=== PATIENT | female | born 1965 | race Two or more races ===

== ENCOUNTER 2020-08-31 17:51 | Outpatient (REF) | payer MEDICAID, SELFPAY | END 2020-08-31 17:52 | disposition home or self-care (01) | LOC: HO.LAB 17:51 | PROVIDERS: Visit Provider Internal Medicine | DX: Z20.828 Contact with and (suspected) exposure to other viral communicable diseases (principal) | CPT/HCPCS: C9803; U0003 ==

== ENCOUNTER 2021-01-27 16:32 | Outpatient (REF) | payer MEDICAID, SELFPAY ==
--- NOTE | ~2021-01-27 | XR_ITS ---
EXAMINATION: XR WRIST, LEFT CLINICAL INFORMATION: Pain in left wrist COMPARISON: None TECHNIQUE: Four views of the left wrist. FINDINGS: There is no fracture or dislocation. The carpal rows are aligned. There is narrowing of the radiocarpal joint space with sclerosis and subchondral cyst formation. The soft tissues are unremarkable. XR/XR wrist LT min 3V IMPRESSION: Advanced degenerative changes at the radiocarpal articulation with narrowing, sclerosis, and subchondral cyst formation.
== END 2021-01-27 16:33 | disposition home or self-care (01) ==
LOC: HO.XRAY 16:32
PROVIDERS: PCP Student in an Organized Health Care Education/Training Program; Visit Provider Student in an Organized Health Care Education/Training Program
DX: M25.532 Pain in left wrist (principal)
CPT/HCPCS: 73110

== ENCOUNTER 2021-03-23 16:23 | Outpatient (REF) | payer MEDICAID, SELFPAY | END 2021-03-23 16:24 | disposition home or self-care (01) | LOC: HO.HOSX 16:23 | PROVIDERS: Visit Provider Orthopaedic Surgery | DX: Z13.89 Encounter for screening for other disorder (principal) ==

== ENCOUNTER 2021-10-23 10:27 | Outpatient (REF) | payer MEDICAID, SELFPAY ==
[2021-10-23 11:33] LABS: Binax Internal Control QC Valid; Binax Lot number: 9864; Binax Now Covid-19 Ag Negative (Negative)
== END 2021-10-23 10:28 | disposition home or self-care (01) ==
LOC: HO.LAB 10:27
PROVIDERS: Visit Provider Internal Medicine
DX: Z20.822 Contact with and (suspected) exposure to COVID-19 (principal)
CPT/HCPCS: 36415; C9803

== ENCOUNTER 2022-06-06 11:10 | Emergency (ER) | payer MEDICAID, SELFPAY ==
[2022-06-06] VITALS (8 sets, daily range): BP systolic 166–183; BP diastolic 70–88; PULSE 78–97; RESP 16–18; TEMP 36.6–37.1; O2SAT 98–99; BMI 34.7
--- NOTE | 2022-06-06 13:28 | ED.GENADULT ---
HPI - General Adult General Chief complaint: General Medical Stated complaint: HBP, doctor sent over Time Seen by Provider: 06/06/22 13:26 Source: patient Mode of arrival: ambulatory Limitations: no limitations History of Present Illness HPI narrative: 57-year-old female came in for evaluation of elevated blood pressure. Patient with history of type 2 DM, HTN taking 40 mg lisinopril since age of 29, patient check her blood pressure at home on a daily basis, found to be in the 180s however patient had no symptoms no headache, no nausea, no vomiting, no blurry vision, no CP, no SOB, no abdominal pain, no weakness, no numbness. Related Data Previous Rx's Medication Instructions Recorded amlodipine 2.5 mg tablet 2.5 mg PO DAILY #30 tabs 06/06/22 Allergies Allergy/AdvReac Type Severity Reaction Status Date / Time codeine [CODEINE] Allergy Unknown UNKNOWN Unverified 07/09/20 14:56 Review of Systems Review of Systems: All other systems are reviewed and are negative Constitutional: Reports as per HPI and Reports no additional constitutional complaints Eyes: Reports as per HPI and Reports no additional eye complaints Reports system reviewed and no additional complaints, except as documented Cardiovascular: Reports as per HPI and Reports no additional cardiovascular complaints Respiratory: Reports as per HPI and Reports no additional respiratory complaints Gastrointestinal: Reports as per HPI and Reports no additional gastrointestinal complaints Genitourinary: Reports no additional female genitourinary complaints Musculoskeletal: Reports no additional musculoskeletal complaints Skin/Breast: Reports system reviewed and no additional complaints, except as docu Psychiatric: Reports no additional psychiatric complaints Endocrine: Reports no additional endocrine complaints Hematologic/Lymphatic: Reports no additional hematologic/lymphatic complaints Allergic/Immunologic: Reports no additional allergic/immunologic complaints Reports system reviewed and no additional complaints, except as documented and Reports Abnormal speech present [facility] Social History Social History Alcohol intake: current Alcohol intake frequency: holidays/special occasions only Patient Tobacco Use Status: Tobacco use Unknown Use of substances other than those prescribed or required for medical reasons: No Advance Directives: No Advance Directives Information Provided: Yes Patient : No Physical Exam ED Vital Signs: Vital Signs - 24 hr 06/06/22 11:17 06/06/22 13:19 06/06/22 13:41 Temperature 98 F Pulse Rate 82 86 Respiratory Rate 18 Blood Pressure 181/84 H 183/73 H 170/70 H Pulse Oximetry 98 Oxygen Delivery Method Room Air 06/06/22 15:10 06/06/22 15:41 06/06/22 16:47 Temperature 98.6 F Pulse Rate 88 78 97 Respiratory Rate 16 16 16 Blood Pressure 179/76 H 166/70 H 175/79 H Pulse Oximetry 99 99 99 Oxygen Delivery Method Room Air Room Air Room Air 06/06/22 17:40 Temperature 98.8 F Pulse Rate 88 Respiratory Rate 16 Blood Pressure 170/88 H Pulse Oximetry 98 Oxygen Delivery Method Room Air BMI result Body Mass Index 34.7 Vital signs have been reviewed as appeared to be correct. Blood pressure normal. Heart rate normal. Respiration rate normal. Temperature normal. Oxygen saturation normal. Appearance: Alert. Oriented X3. No acute distress. Head: Normal external exam. Normocephalic. Atraumatic. No Light signs noted. No raccoon eyes noted Eyes: PERRLA. EOMI. Conjunctiva and sclera normal. Eyelids normal. ENT: TM's Normal. Pharynx normal. Uvula midline. Moist mucous membranes. No trismus noted. No drooling noted. No muffled voice noted. Neck: Normal inspection. Neck supple. FROM. No adenopathy. Thyroid Normal. No meningeal signs. No neck mass noted. CVS: Normal heart rate and rhythm. Heart sound normal. No murmurs noted. Pulses normal throughout. Respiratory: No respiratory distress. Painless inspiration. Breath sounds normal. No wheezes/rales/rhonchi noted. Chest nontender. No accessory muscle usage noted or decreased air movement noted. Abdomen: Soft and nontender. Bowel sounds normal in all 4 quadrants. No distention noted. No organomegaly noted. No visible injury noted. Back: No CVA tenderness. Full range of motion noted. Skin: Skin warm and dry. Normal skin color. Normal skin turgor. No rashes/lesions/lacerations noted. Extremities: No lower extremity edema. Extremities exhibit normal range of motion. Extremities nontender. Neuro: Oriented X 3. Cranial nerve exam: II-XII are grossly intact No motor deficit. No sensory deficit. Reflexes normal. Course Course Course Narrative: 57-year-old female with history of essential hypertension patient been taking 40 mg of lisinopril for many years, patient noted that her blood pressure is running high but patient has no symptoms in particular no headache, no CP, no SOB. Came in today because her blood pressure was high, patient was given additional 2.5 mg of Norvasc now blood pressure is 166/75, patient is still asymptomatic will discharge the patient with adding 5 mg of Norvasc daily with the lisinopril and follow-up with PCP. Discharge Plan Discharge Clinical Impression: Hypertension associated with diabetes Patient Disposition: Home, Self-Care Instructions: Hypertension and Diabetes (ED) Additional Instructions: Norvasc 2.5 mg tablet was added to your regular medication that you take for high blood pressure, take 1 pill a day please make sure to follow-up with your primary doctor to continue the management of your high blood pressure. Prescriptions: New amlodipine 2.5 mg tablet 2.5 mg PO DAILY Qty: 30 0RF Referrals: Maya Tamayo MD [Primary Care Provider] -
--- NOTE | 2022-06-06 13:49 | PC.NURSE ---
pt would like this nurse to ensure with nurse at [facility] if po norvasc ordered by ed provider is safe to take with the medication she was given in the primary care office that pt does not remember the name of. this rn has been on hold with [facility] for 25 mins with no answer to this web content writer. pt would like to refrain from taking potentially too much medication for bloop pressure .
[2022-06-06] MEDS: amLODIPine Besylate 2.5 MG TABLET PO ×2 (14:36→17:36)
[2022-06-06] MEDS: Acetaminophen 325 MG TABLET 650 MG PO (19:46)
== END 2022-06-06 19:55 | disposition home or self-care (01) ==
PROVIDERS: Emergency Provider Emergency Medicine; PCP Student in an Organized Health Care Education/Training Program
DX: I10 Essential (primary) hypertension (principal); E11.9 Type 2 diabetes mellitus without complications
CPT/HCPCS: 99283; 99284

== ENCOUNTER 2023-06-29 07:42 | Outpatient (REF) | payer MEDICAID, SELFPAY | END 2023-06-29 07:43 | disposition home or self-care (01) | LOC: HO.HOSX 07:42 | PROVIDERS: Visit Provider Orthopaedic Surgery | DX: Z13.89 Encounter for screening for other disorder (principal) ==

== ENCOUNTER 2023-07-11 11:14 | Outpatient (REF) | payer MEDICAID, SELFPAY ==
--- NOTE | ~2023-07-11 | XR_ITS ---
EXAMINATION: XR KNEE, LEFT CLINICAL INFORMATION: Left knee pain COMPARISON: None available. TECHNIQUE: 3 views of the left knee. FINDINGS: Joint effusion present. Bones are diffusely demineralized. Advanced degenerative changes in the medial compartment with loss of the joint space, subchondral sclerosis, remodeling and medial marginal osteophytes. [id number] degenerative changes with joint space narrowing in the lateral and patellofemoral compartments. XR/XR knee LT 3V IMPRESSION: Joint effusion. Advanced tricompartmental degenerative changes. Bones are diffusely demineralized. Additional imaging with CT scan or MRI should be considered for better visualization as these modalities are much more sensitive for detection of fracture or other underlying pathology.
== END 2023-07-11 11:15 | disposition home or self-care (01) ==
LOC: HO.HOSX 11:14
PROVIDERS: Visit Provider Orthopaedic Surgery
DX: M25.562 Pain in left knee (principal); M06.9 Rheumatoid arthritis, unspecified; Z79.899 Other long term (current) drug therapy
CPT/HCPCS: 73562; 99202

== ENCOUNTER 2023-07-11 13:45 | Outpatient (AMB) | payer MEDICAID, SELFPAY ==
--- NOTE | 2023-07-11 14:04 | A.OFFVIS_ITS ---
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 Patient reports pain has been present for a while. She was previously seen by rheumatology in the past where she was dx with RA. States cortisone injection by PCP was given on 06/30/23 which provided some relief. Currently she does not have pain, states pain comes with stair use and prolong walking. Denies any injury. She has not had a viscosupplementation injection. 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 She would like to hold off on surgery for as long as possible. Allergies codeine [CODEINE] Allergy (Unknown, Unverified 07/09/20 14:56) UNKNOWN Medication List - Last Reviewed 07/11/23 by JAYNA Celaya albuterol sulfate 90 mcg/actuation (Ventolin HFA) 2 puffs inhalation QID PRN amlodipine 2.5 mg PO DAILY aspirin 81 mg PO DAILY atorvastatin 10 mg PO DAILY hydrochlorothiazide 25 mg PO DAILY ibuprofen 600 mg PO TID lisinopril 40 mg PO DAILY metformin 500 mg PO BID [facility] Social History Alcohol intake: current Alcohol intake frequency: holidays/special occasions only Patient Tobacco Use Status: Never used Tobacco Current occupational status: unemployed Physical Exam Const Other: Well-nourished well-developed very friendly female awake alert and oriented x3 in no acute distress Extrem Other: Bilateral lower extremity examination shows good capillary refill, no skin lesions noted, normal sensation light touch Left knee examination shows a mild effusion, palpable crepitus with range of motion, pain with range of motion, range of motion from -5 degrees to 110 degrees, no instability Results Reviewed Results Reviewed: X-rays of the patient's left knee show joint space narrowing, subchondral sclerosis, osteophyte formation, no acute bony abnormalities Assessment & Plan Assessment & Plan (1) Rheumatoid arthritis: Code(s): M06.9 - Rheumatoid arthritis, unspecified Plan: Ms. Meaghan Roca presents with left knee pain due to degenerative joint disease and rheumatoid arthritis. I had a lengthy discussion with the patient regarding the treatment options. At this point the patient's symptoms are tolerable to her. 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 I will arrange for her to have a consultation with the rheumatologic services here at [facility]. She will follow-up as instructed. I will see her back in 2-3 months time for repeat clinical examination. If she does not get lasting relief from the cortisone injection therapy I will see whether not her insurance co makenzie will cover a viscosupplementation injection. The patient wishes to hold off on total knee replacement surgery for as long as possible. I agree with this plan. Feel free to call me at any time should questions regarding her orthopedic management arise. Thank you very much for asking me to see this very friendly patient. I spent 22 minutes in reviewing the patient's records and imaging studies, seeing the patient and documenting in the medical record. (2) Left knee pain: Code(s): M25.562 - Pain in left knee Orders: Orders XR knee LT 3V 06/29/23 M25.562 - Pain in left knee XR knee LT 3V Today M25.562 - Pain in left knee Referrals Rheumatology Referral M06.9 - Rheumatoid arthritis, unspecified, M25.562 - Pain in left knee Coding Level of Care Code New Pt Level 2 (78099) Diagnoses Rheumatoid arthritis M06.9 Left knee pain M25.562
== END 2023-07-11 14:37 | disposition home or self-care (01) ==
PROVIDERS: PCP Student in an Organized Health Care Education/Training Program; Visit Provider Orthopaedic Surgery
DX: M06.9 Rheumatoid arthritis, unspecified (principal); M25.562 Pain in left knee
CPT/HCPCS: 99202

== ENCOUNTER 2023-08-17 12:49 | Outpatient (RCR) | payer MEDICAID, SELFPAY | END 2023-09-18 07:05 | disposition home or self-care (01) | LOC: HO.PTCHIC 12:49 | PROVIDERS: PCP Student in an Organized Health Care Education/Training Program; Visit Provider Student in an Organized Health Care Education/Training Program | DX: M25.511 Pain in right shoulder (principal); M25.512 Pain in left shoulder; G89.29 Other chronic pain | CPT/HCPCS: 97110; 97162 ==

== ENCOUNTER 2023-10-13 10:35 | Outpatient (AMB) | payer MEDICAID, SELFPAY ==
--- NOTE | 2023-10-13 10:38 | A.OFFVIS_ITS ---
Intake Vital Signs 10/13/23 10:39 Height 5 ft 2 in Weight 181 lb 3.52 oz BMI 33.1 BP 156/72 H Blood Pressure Location Rt brachial Position Sitting Pulse 127 H Pulse Source Pulse Oximeter Temp 97.9 F Temp Source Skin Pulse Oximetry (%) 98 Oxygen Delivery Method Room Air Comment pt is very nervous and anxious Intake Visit Reasons: RA Intake Note: New patient presenting today for RA. Referred by internal orthopedics. Prior rheumatology patient of [facility], years ago . 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: No Accompanied by: Self / Same As Patient Allergies codeine [CODEINE] Allergy (Unknown, Unverified 10/13/23 10:51) UNKNOWN Medication List - Last Reconciled 10/13/23 by Sebastian Benitez MD albuterol sulfate 90 mcg/actuation (Ventolin HFA) 2 puffs inhalation QID PRN amlodipine 10 mg PO DAILY ascorbic acid (vitamin C) 500 mg PO BID aspirin 81 mg PO DAILY atorvastatin 10 mg PO DAILY hydrochlorothiazide 25 mg PO DAILY ibuprofen 600 mg PO TID lidocaine 5% 1 patch topical DAILY metformin 500 mg PO BID HPI HPI Comments History of Present Illness Details This is a 58-year-old female with RA who presents as a new patient. Patient states that she was diagnosed with rheumatoid arthritis in her 30s when she started having swelling and deformity of her left 2nd toe. She was evaluated by Switch Operators Supervisor , she was started on methotrexate. She states that she took it for approximately 2 months. She was worried about side effects. She states that she has been doing fairly well overall over the years. Gets intermittent episodes of joint pain swelling and stiffness. Most recent flare- up was around 4 months ago when she started having significant left knee pain and intermittent left shoulder pain. She usually would get a prednisone taper from her PCP but it would cause a spike in her blood sugar. She has been taking ibuprofen 800 mg t.i.d.. Currently her most severe pain is her left knee. She received a steroid injection by her PCP recently and it did not help. Patient is unaware of any family history of an autoimmune rheumatic disease. She denies any history of DVT/PE. [facility] Medical History Type 2 diabetes mellitus without complication Essential (primary) hypertension Rheumatoid arthritis Left knee pain Surgical History Hx of cholecystectomy Hx of section Family History Sister Fibromyalgia Social History Household Members: Spouse and Children Alcohol intake: former Patient Tobacco Use Status: Never used Tobacco Current occupational status: unemployed Female Reproductive History Menstrual Total pregnancies: 9 Full term: 9 Number of Living Children: 9 Review of Systems Musc Reports deformity, Reports arthralgias, Reports joint swelling and Reports stiffness Physical Exam Vital Signs: Last Vital Signs Temp 97.9 F 10/13/23 10:39 Pulse 127 H 10/13/23 10:39 BP 156/72 H 10/13/23 10:39 Pulse Ox 98 10/13/23 10:39 Oxygen Delivery Method Room Air 10/13/23 10:39 BMI result Body Mass Index 33.1 Const General: cooperative, healthy appearing and comfortable Nutritional Appearance: obese Orientation/consciousness: patient oriented x3 Limitations: ambulation with cane HEENT Head: Yes normocephalic and Yes atraumatic Mouth: moist mucous membranes Resp Effort & Inspection: normal respiratory effort and able to speak in complete sentences Auscultation: rales bilateral at the base Cardio Rate: regular rate Rhythm: regular rhythm GI Inspection: No distended Palpation (GI): Soft to palpation and nontender Skin General skin exam: no rashes or lesions noted Neuro General: patient oriented x3 Extrem Other: Prominent chronic RA deformities Right wrist without swelling or tenderness but significantly reduced flexion and extension Right hand: Ulnar deviation at the MCPs with prominent synovial thickening of multiple MCPs, no active synovitis. Negative MCP squeeze to Left wrist without swelling or tenderness, significantly reduced flexion and extension Synovial thickening of few MCPs negative MCP squeeze test [place]-neck deformity of left 3rd and 5th fingers Normal nailfold capillaroscopy Normal range of motion of elbows and shoulders without pain Right knee warmth some tenderness with flexion Significant left knee warmth and pain with any range of motion swelling or tenderness bilaterally Deviation of left 2nd toe No MTP tenderness Negative MTP squeeze test bilaterally Assessment & Plan Assessment & Plan (1) Rheumatoid arthritis: Code(s): M06.9 - Rheumatoid arthritis, unspecified Qualifiers: Rheumatoid arthritis location: multiple sites Rheumatoid factor presence: unspecified presence Qualified Code(s): M06.9 - Rheumatoid arthritis, unspecified Plan: This is a 58-year-old female rheumatoid arthritis who presents as a new patient. She was diagnosed with rheumatoid arthritis in her 30s. She only took methotrexate for about 2 months. She was worried about side effects. She has not been treated for RA for many years and she has multiple deformities. Check labs and check x-rays of involved joints Start prednisone 10 mg daily. Follow-up in 2 weeks (2) Bilateral rales: Code(s): R09.89 - Other specified symptoms and signs involving the circulatory and respiratory systems Plan: Bibasilar, no symptoms of shortness of breath or cough. There is a possibility of RA-ILD. Patient is worried and gets quite anxious around doctors. In subsequent visits, will discuss checking a chest CT. Plan I spent 47 minutes reviewing patient's chart, evaluating patient, ordering diagnostic workup, counseling patient and documenting in the chart Orders: Orders Complete Blood Count Auto Diff Today M06.9 - Rheumatoid arthritis, unspecified Comprehensive Met. Panel Today M06.9 - Rheumatoid arthritis, unspecified C Reactive Protein Today M06.9 - Rheumatoid arthritis, unspecified Hepatitis A,B,C Profile Today Z11.59 - Encounter for screening for other viral diseases [place] Reflex Titer and Pattern Today M06.9 - Rheumatoid arthritis, unspecified Rheumatoid Factor Today M06.9 - Rheumatoid arthritis, unspecified XR hand wrist RT Today M06.9 - Rheumatoid arthritis, unspecified XR foot RT min 3V Today M06.9 - Rheumatoid arthritis, unspecified Erythrocyte Sedimentation Rate Today M06.9 - Rheumatoid arthritis, unspecified T Spot TB Today Z11.7 - Encounter for testing for latent tuberculosis infection Cyclic Citrullinated Peptide Today M06.9 - Rheumatoid arthritis, unspecified XR hand wrist LT Today M06.9 - Rheumatoid arthritis, unspecified XR foot LT min 3V Today M06.9 - Rheumatoid arthritis, unspecified Medications: New prednisone 10 mg PO DAILY 21 tabs 0RF Coding Level of Care Code New Pt Level 4 (08382) Diagnoses Rheumatoid arthritis involving multiple sites, unspecified whether rheumatoid factor present M06.9 Rheumatoid arthritis location: multiple sites Rheumatoid factor presence: unspecified presence Bilateral rales R09.89
[2023-10-13 10:39] VITALS: BP 156/72; PULSE 127; TEMP 36.6; O2SAT 98; BMI 33.1
== END 2023-10-13 11:26 | disposition home or self-care (01) ==
PROVIDERS: PCP Student in an Organized Health Care Education/Training Program; Visit Provider Student in an Organized Health Care Education/Training Program
DX: M06.9 Rheumatoid arthritis, unspecified (principal); R09.89 Other specified symptoms and signs involving the circulatory and respiratory systems
CPT/HCPCS: 99204

== ENCOUNTER 2023-10-13 10:35 | Outpatient (REF) | payer MEDICAID, SELFPAY ==
[2023-10-13 11:59] LABS: MANUAL DIFF FLAG NO
[2023-10-13 12:47] LABS: Basophils Absolute Auto 0.1 X10*3/uL (0.0-0.2); Basophils Percent Auto 0.5 % (0-2); Eosinophils Absolute Auto 0.2 X10*3/uL (0.0-0.4); Eosinophils Percent Auto 1.3 % (0-4); Hematocrit 37.8 % (37.0-47.0); Imm Gran Abs Auto 0.08 X10*3/uL (0.00-0.03); Imm Gran Pct Auto 0.6 % (0.0-0.4); Lymphocytes Absolute Auto 2.7 X10*3/uL (1.2-4.9); Lymphocytes Percent Auto 20.9 % (20-40); Mean Corpuscular HGB Conc 31.7 g/dl (31.0-35.0); Mean Corpuscular Hemoglobin 27.4 pg (27.0-33.0); Mean Corpuscular Volume 86.3 fL (80.0-98.0); Mean Platelet Volume 10.2 fL (9.4-12.3); Monocytes Absolute Auto 1.1 X10*3/uL (0.1-1.2); Monocytes Percent Auto 8.1 % (2-11); Neutrophils Absolute Auto 8.9 x10*3/uL (2.0-8.3); Neutrophils Percent Auto 68.6 % (45-73); Platelet Count 466 X10*3/uL (160-400); Red Blood Count 4.38 X10*6/uL (4.20-5.50)
[2023-10-13 13:07] LABS: Alanine Aminotransferase 17 U/L (0-31); Albumin Level 4.3 g/dL (3.5-5.0); Alkaline Phosphatase 49 U/L (39-117); Anion Gap 15 (12-20); Aspartate Amino Transferase 13 U/L (5-31); Bilirubin Total 0.3 mg/dL (0.0-1.0); Blood Urea Nitrogen 12 mg/dL (9-16); C Reactive Protein 5.19 mg/dL (< or = 0.50); Calcium 10.4 mg/dL (8.4-10.2); Carbon Dioxide 25 mmol/L (22-29); Chloride 101 mmol/L (96-108); Estimated Glomerular Filt Rate > 60; Glucose Random 237 mg/dL (60-115); Potassium 3.4 mmol/L (3.3-5.1); Sodium 138 mmol/L (135-145); Total Protein 8.4 g/dL (6.5-8.0)
[2023-10-13 13:36] LABS: Erythrocyte Sedimentation Rate 79 MM/HR (0-20)
[2023-10-13 13:58] LABS: Rheumatoid Factor 977.7 IU/mL (<15.0)
[2023-10-14 04:40] LABS: HBS Num1 0.38 mIU/mL (0-7.99); HBc Num1 0.08 S/CO (0.00-0.79); HBsAGNum1 0.34 S/CO (0.00-0.99); Hepatitis A Antibody IgM 0.15 Index (0-0.79); Hepatitis B Core Antibody Nonreactive (Nonreactive); Hepatitis B Surface Antigen Negative (Negative); ~HepC Num1 0.09 S/CO (0.00-0.79); ~Hepatitis A Antibody IgM Nonreactive (Nonreactive); ~Hepatitis B Surface Antibody NONREACTIVE (Nonreactive); ~Hepatitis C Antibody Nonreactive (Nonreactive)
[2023-10-15 23:23] LABS: TS Negative Control Passed; TS Panel A 1; TS Panel B 0; TS Positive Control Passed; TSpotTB Negative (Negative)
[2023-10-17 15:22] LABS: Anti Nuclear Antibody Screen NEGATIVE (NEGATIVE)
[2023-10-18 11:54] LABS: Cyclic Citrullinated Peptide 237 UNITS
== END 2023-10-13 10:36 | disposition home or self-care (01) ==
LOC: HO.LAB 10:35
PROVIDERS: PCP Student in an Organized Health Care Education/Training Program; Visit Provider Student in an Organized Health Care Education/Training Program
DX: M06.9 Rheumatoid arthritis, unspecified (principal); R09.89 Other specified symptoms and signs involving the circulatory and respiratory systems; Z11.59 Encounter for screening for other viral diseases; Z11.7 Encounter for testing for latent tuberculosis infection
CPT/HCPCS: 36415; 73110; 73130; 80053; 85025; 85652; 86038; 86140; 86200; 86431; 86481; 86704; 86706; 86709; 86803; 87340; 99202

== ENCOUNTER 2023-10-26 12:46 | Outpatient (AMB) | payer MEDICAID, SELFPAY ==
--- NOTE | 2023-10-26 12:48 | MHC.OFFVIS ---
Intake Vital Signs 10/26/23 12:49 Height 5 ft 2 in Weight 180 lb 15.992 oz BMI 33.1 BP 162/84 H Blood Pressure Location Rt brachial Position Sitting Pulse 132 H Pulse Source Pulse Oximeter Temp 99.4 F Temp Source Skin Pulse Oximetry (%) 98 Oxygen Delivery Method Room Air Intake Visit Reasons: RA Intake Note: Pt last seen 10/13/23 presents today for follow up and test results. Prednsione 10mg daily responding well, joint pain and swelling has diminished. 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: No Accompanied by: Self / Same As Patient Allergies codeine [CODEINE] Allergy (Unknown, Unverified 10/26/23 12:54) UNKNOWN Medication List - Last Reconciled 10/26/23 by Sebastian Benitez MD albuterol sulfate 90 mcg/actuation (Ventolin HFA) 2 puffs inhalation QID PRN amlodipine 10 mg PO DAILY ascorbic acid (vitamin C) 500 mg PO BID aspirin 81 mg PO DAILY atorvastatin 10 mg PO DAILY hydrochlorothiazide 25 mg PO DAILY ibuprofen 600 mg PO TID lidocaine 5% 1 patch topical DAILY metformin 500 mg PO BID prednisone 10 mg PO DAILY HPI HPI Comments History of Present Illness Details 58-year-old female with seropositive erosive RA returns for follow-up. She is on prednisone 10 mg daily which feels that has gave her some relief. She continues to have multiple swollen and tender joints, especially left knee. Initial history: This is a 58-year-old female with RA who presents as a new patient. Patient states that she was diagnosed with rheumatoid arthritis in her 30s when she started having swelling and deformity of her left 2nd toe. She was evaluated by [facility] , she was started on methotrexate. She states that she took it for approximately 2 months. She was worried about side effects. She states that she has been doing fairly well overall over the years. Gets intermittent episodes of joint pain swelling and stiffness. Most recent flare-up was around 4 months ago when she started having significant left knee pain and intermittent left shoulder pain. She usually would get a prednisone taper from her PCP but it would cause a spike in her blood sugar. She has been taking ibuprofen 800 mg t.i.d.. Currently her most severe pain is her left knee. She received a steroid injection by her PCP recently and it did not help. Patient is unaware of any family history of an autoimmune rheumatic disease. She denies any history of DVT/PE. [facility] Medical History Type 2 diabetes mellitus without complication Essential (primary) hypertension Rheumatoid arthritis Left knee pain Surgical History Hx of cholecystectomy Hx of section Family History Sister Fibromyalgia Social History Household Members: Spouse and Children Alcohol intake: former Patient Tobacco Use Status: Never used Tobacco Current occupational status: unemployed Review of Systems Musc Reports deformity, Reports arthralgias, Reports joint swelling and Reports stiffness Physical Exam Vital Signs: Last Vital Signs Temp 99.4 F 10/26/23 12:49 Pulse 132 H 10/26/23 12:49 BP 162/84 H 10/26/23 12:49 Pulse Ox 98 10/26/23 12:49 Oxygen Delivery Method Room Air 10/26/23 12:49 BMI result Body Mass Index 33.1 Const General: cooperative, healthy appearing and comfortable Nutritional Appearance: obese Orientation/consciousness: patient oriented x3 Limitations: ambulation with cane HEENT Head: Yes normocephalic and Yes atraumatic Mouth: moist mucous membranes Resp Effort & Inspection: normal respiratory effort and able to speak in complete sentences Auscultation: rales bilateral at the base Cardio Rate: regular rate Rhythm: regular rhythm GI Inspection: No distended Palpation (GI): Soft to palpation and nontender Skin General skin exam: no rashes or lesions noted Neuro General: patient oriented x3 Extrem Other: Prominent chronic RA deformities Right wrist without swelling or tenderness but significantly reduced flexion and extension Right hand: Ulnar deviation at the MCPs with prominent synovial thickening of multiple MCPs, no active synovitis. Negative MCP squeeze to Left wrist without swelling or tenderness, significantly reduced flexion and extension Synovial thickening of few MCPs negative MCP squeeze test [place]-neck deformity of left 3rd and 5th fingers Normal nailfold capillaroscopy Normal range of motion of elbows and shoulders without pain Right knee warmth some tenderness with flexion Significant left knee warmth and pain with any range of motion swelling or tenderness bilaterally Deviation of left 2nd toe No MTP tenderness Negative MTP squeeze test bilaterally Results Reviewed Results Reviewed: Ordering Physician: Sebastian Benitez MD Date of Service: 10/13/23 Procedure(s): XR hand wrist LT Accession Number(s): [id number] cc: Maya Tamayo MD; Sebastian Benitez MD~ EXAMINATION:? XR HAND WRIST LEFT XR HAND WRIST RIGHT CLINICAL INFORMATION:? Rheumatoid arthritis.?? COMPARISON:? Radiographs of left wrist from 01/27/2021 and both hands from 09/16/2009.?? TECHNIQUE:? Right hand and wrist, 4 views. Left hand and wrist, 4 views. FINDINGS: RIGHT HAND AND WRIST: There is moderate to severe loss of radiocarpal joint space with subchondral cystic changes. There is mild erosive change at the articular surface of the distal ulna. Also, there is narrowing of capitolunate and scaphocapitate joint space and faintly visible subchondral cystic changes of the distal lunate. These abnormalities could represent combination of chronic rheumatoid arthritis and superimposed osteoarthritis. Mild narrowing of triscaphe joint space.? There are very small osteophytes at the thumb metacarpophalangeal and interphalangeal joints.? Old erosions, subarticular cystic changes and joint space loss of 2nd, 3rd and 4th metacarpophalangeal joints. This represents significant worsening of the arthritis compared to 09/16/2009. There is ulnar deviation at 3rd, 4th and 5th MCP joints (worst at fifth digit). Soft tissues are swollen around the 2nd and 3rd MCP joints. No evidence of erosions at the interphalangeal joints. LEFT HAND AND WRIST: Chronic loss of radiolunate joint space and subchondral cystic changes of the radius and lunate. There is worsening of the radiolunate joint space loss compared to 01/27/2021. There is a small erosion involving the ulnar styloid.? Marginal erosions and mild joint space loss of the 5th metacarpophalangeal joint are new compared to 01/27/2021. There appear to be marginal erosive change of the head of the second metacarpal and soft tissue swelling of the 2nd MCP joint. Probable old marginal erosion of the radial aspect of the head of the thumb metacarpal. Small osteophytes are present at the mildly degenerated thumb MCP joint. Subchondral cyst at the lateral base of the middle phalanx of the 4th digit. There appear to be small erosions involving the radial base of the middle phalanx of the 3rd digit and the adjacent head of the 3rd proximal phalanx. XR/XR hand wrist LT IMPRESSION: *? In this patient with history of rheumatoid arthritis, there is slight interval worsening of the cartilage space loss of the radioscaphoid joint and new small erosion at the ulnar styloid. Also, there is new erosive change of the fifth metacarpophalangeal joint. Furthermore, small marginal erosions are seen at the third PIP joint. *? Rheumatoid arthritis involving the right hand and wrist has significantly worsened compared to 09/16/2009.?? ? EXAMINATION:? XR KNEE, LEFT? CLINICAL INFORMATION:? Left knee pain?? COMPARISON:? None available.?? TECHNIQUE:? 3 views of the left knee. FINDINGS: Joint effusion present. Bones are diffusely demineralized. Advanced degenerative changes in the medial compartment with loss of the joint space, subchondral sclerosis, remodeling and medial marginal osteophytes. [id number] degenerative changes with joint space narrowing in the lateral and patellofemoral compartments.?? XR/XR knee LT 3V IMPRESSION: Joint effusion. Advanced tricompartmental degenerative changes. ? Bones are diffusely demineralized. Additional imaging with CT scan or MRI should be considered for better visualization as these modalities are much more sensitive for detection of fracture or other underlying pathology. ? Assessment & Plan Assessment & Plan (1) Rheumatoid arthritis: Code(s): M06.9 - Rheumatoid arthritis, unspecified Qualifiers: Rheumatoid arthritis location: multiple sites Rheumatoid factor presence: unspecified presence Qualified Code(s): M06.9 - Rheumatoid arthritis, unspecified Plan: This is a 58-year-old female rheumatoid arthritis who presents as a new patient. She was diagnosed with rheumatoid arthritis in her 30s. She only took methotrexate for about 2 months. She was worried about side effects. She has not been treated for RA for many years and she has multiple deformities. I reviewed patient's lab which show significantly elevated inflammatory markers, I reviewed her hand and wrist x-rays which showed progressive rheumatoid arthritis deformities. We discussed the complications of untreated RA with worsening joint pain, stiffness, deformities, disability as well as extra-articular manifestations including increased cardiovascular events, lung disease...etc She is agreeable to start methotrexate. Start methotrexate 15 mg once weekly for 2 weeks then 20 mg once weekly. Start folic acid 1 mg daily Reduce prednisone to 5 mg daily x2 weeks then stop Labs before next visit in 2 months (2) Bilateral rales: Code(s): R09.89 - Other specified symptoms and signs involving the circulatory and respiratory systems Plan: Bibasilar, no symptoms of shortness of breath or cough. But her exercise capacity is limited by her knee pain. There is a possibility of RA-ILD. Patient is worried and gets quite anxious around doctors. Patient will need a high-resolution CT chest for further evaluation. Patient would like to postpone that CT scan as she is overwhelmed already (3) MCFP methotrexate user: Code(s): Z79.631 - intermodal customer service (current) use of antimetabolite agent Plan: We had a long discussion about risks and benefits of methotrexate. Patient agrees to proceed. Check safety labs periodically Plan I spent 27 minutes reviewing patient's chart, evaluating patient, ordering diagnostic workup, counseling patient and documenting in the chart Orders: Orders Comprehensive Met. Panel 2 Months Z79.631 - intermodal customer service (current) use of antimetabolite agent C Reactive Protein 2 Months Z79.631 - [employer] customer service (current) use of antimetabolite agent Complete Blood Count Auto Diff 2 Months Z79.631 - [employer] customer service (current) use of antimetabolite agent Erythrocyte Sedimentation Rate 2 Months Z79.631 - MCFP (current) use of antimetabolite agent Medications: New prednisone 5 mg PO DAILY 14 tabs 0RF methotrexate sodium Take 6 tabs by mouth once weekly for 2 weeks then 8 tabs once weekly 64 tabs 0RF folic acid 1 mg PO DAILY 90 tabs 1RF Discontinued prednisone Discontinued Reason: Doctor's Order 10 mg PO DAILY 21 tabs 0RF Coding Level of Care Code Est Pt Level 4 (20390) Diagnoses Rheumatoid arthritis involving multiple sites, unspecified whether rheumatoid factor present M06.9 Rheumatoid arthritis location: multiple sites Rheumatoid factor presence: unspecified presence Bilateral rales R09.89 intermodal customer service methotrexate user Z79.631
[2023-10-26 12:49] VITALS: BP 162/84; PULSE 132; TEMP 37.4; O2SAT 98; BMI 33.1
== END 2023-10-26 13:16 | disposition home or self-care (01) ==
PROVIDERS: PCP Student in an Organized Health Care Education/Training Program; Visit Provider Student in an Organized Health Care Education/Training Program
DX: M06.9 Rheumatoid arthritis, unspecified (principal); R09.89 Other specified symptoms and signs involving the circulatory and respiratory systems; Z79.631 Long term (current) use of antimetabolite agent
CPT/HCPCS: 99214

== ENCOUNTER → 2023-10-26 12:46 | Outpatient (BNVA) | payer MEDICAID, SELFPAY | PROVIDERS: PCP Student in an Organized Health Care Education/Training Program; Visit Provider Student in an Organized Health Care Education/Training Program | DX: M06.9 Rheumatoid arthritis, unspecified (principal); R09.89 Other specified symptoms and signs involving the circulatory and respiratory systems; Z79.631 Long term (current) use of antimetabolite agent | CPT/HCPCS: 99212 ==

== ENCOUNTER 2023-12-26 13:48 | Outpatient (REF) | payer MEDICAID, SELFPAY ==
[2023-12-26 15:16] LABS: MANUAL DIFF FLAG NO
[2023-12-26 16:14] LABS: Basophils Absolute Auto 0.1 X10*3/uL (0.0-0.2); Basophils Percent Auto 0.6 % (0-2); Eosinophils Absolute Auto 0.4 X10*3/uL (0.0-0.4); Eosinophils Percent Auto 3.2 % (0-4); Hematocrit 36.9 % (37.0-47.0); Hemoglobin 11.7 g/dl (12.0-16.0); Imm Gran Abs Auto 0.07 X10*3/uL (0.00-0.03); Imm Gran Pct Auto 0.6 % (0.0-0.4); Lymphocytes Absolute Auto 3.7 X10*3/uL (1.2-4.9); Lymphocytes Percent Auto 29.5 % (20-40); Mean Corpuscular HGB Conc 31.7 g/dl (31.0-35.0); Mean Corpuscular Hemoglobin 27.6 pg (27.0-33.0); Mean Platelet Volume 10.5 fL (9.4-12.3); Monocytes Absolute Auto 1.1 X10*3/uL (0.1-1.2); Monocytes Percent Auto 8.9 % (2-11); Neutrophils Absolute Auto 7.2 x10*3/uL (2.0-8.3); Neutrophils Percent Auto 57.2 % (45-73); Platelet Count 417 X10*3/uL (160-400); Red Blood Count 4.24 X10*6/uL (4.20-5.50); Red Cell Distribution Width 15.7 % (11.0-16.0); White Blood Count 12.6 X10*3/uL (4.8-10.8)
[2023-12-26 16:45] LABS: Alanine Aminotransferase 14 U/L (0-31); Albumin Level 4.1 g/dL (3.5-5.0); Alkaline Phosphatase 49 U/L (39-117); Anion Gap 17 (12-20); Aspartate Amino Transferase 11 U/L (5-31); Bilirubin Total 0.3 mg/dL (0.0-1.0); Blood Urea Nitrogen 13 mg/dL (9-16); C Reactive Protein 4.51 mg/dL (< or = 0.50); Calcium 10.1 mg/dL (8.4-10.2); Carbon Dioxide 25 mmol/L (22-29); Chloride 101 mmol/L (96-108); Estimated Glomerular Filt Rate > 60; Glucose Random 108 mg/dL (60-115); Potassium 3.4 mmol/L (3.3-5.1); Sodium 140 mmol/L (135-145); Total Protein 7.8 g/dL (6.5-8.0)
[2023-12-26 16:58] LABS: Erythrocyte Sedimentation Rate 50 MM/HR (0-20)
== END 2023-12-26 13:49 | disposition home or self-care (01) ==
LOC: HO.LAB 13:48
PROVIDERS: PCP Student in an Organized Health Care Education/Training Program; Visit Provider Student in an Organized Health Care Education/Training Program
DX: Z79.631 Long term (current) use of antimetabolite agent (principal)
CPT/HCPCS: 36415; 80053; 85025; 85652; 86140

== ENCOUNTER 2023-12-28 13:09 | Outpatient (AMB) | payer MEDICAID, SELFPAY ==
[2023-12-28 13:19] VITALS: BP 128/66; PULSE 113; TEMP 36.3; O2SAT 99; BMI 33.3
--- NOTE | 2023-12-28 13:19 | MHC.OFFVIS ---
Intake Vital Signs 12/28/23 13:19 Height 5 ft 2 in Weight 181 lb 14.102 oz BMI 33.3 BP 128/66 Blood Pressure Location Rt brachial Position Sitting Pulse 113 H Pulse Source Pulse Oximeter Temp 97.4 F Temp Source Skin Pulse Oximetry (%) 99 Oxygen Delivery Method Room Air Intake Visit Reasons: RA Intake Note: Patient last seen 10/26/23 presents today for follow up and test results. 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 Accompanied by: Self / Same As Patient Allergies codeine [CODEINE] Allergy (Unknown, Unverified 12/28/23 13:27) UNKNOWN Medication List - Last Reconciled 12/28/23 by Sebastian Benitez MD acetaminophen 500 - 1,000 mg PO Q6-8H PRN albuterol sulfate 90 mcg/actuation (Ventolin HFA) 2 puffs inhalation QID PRN amlodipine 10 mg PO DAILY ascorbic acid (vitamin C) 500 mg PO BID aspirin 81 mg PO DAILY atorvastatin 10 mg PO DAILY cholecalciferol (vitamin D3) 125 mcg PO QAM hydrochlorothiazide 25 mg PO DAILY ibuprofen 600 mg PO TID lidocaine 5% 1 patch topical DAILY losartan 50 mg PO DAILY metformin 1,000 mg PO BID metformin 500 mg PO TIDWMEAL multivitamin 1 tab PO QAM HPI HPI Comments History of Present Illness Details 58-year-old female with seropositive erosive RA returns for follow-up. she started taking methotrexate last visit. She discontinued it a few weeks ago due to hair loss. She was on prednisone 2.5 mg daily which provided some relief. She states that her joint pains are better overall but continues to bilateral knee pain. Initial history: This is a 58-year-old female with RA who presents as a new patient. Patient states that she was diagnosed with rheumatoid arthritis in her 30s when she started having swelling and deformity of her left 2nd toe. 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 She states that she took it for approximately 2 months. She was worried about side effects. She states that she has been doing fairly well overall over the years. Gets intermittent episodes of joint pain swelling and stiffness. Most recent flare-up was around 4 months ago when she started having significant left knee pain and intermittent left shoulder pain. She usually would get a prednisone taper from her PCP but it would cause a spike in her blood sugar. She has been taking ibuprofen 800 mg t.i.d.. Currently her most severe pain is her left knee. She received a steroid injection by her PCP recently and it did not help. Patient is unaware of any family history of an autoimmune rheumatic disease. She denies any history of DVT/PE. [facility] Medical History Type 2 diabetes mellitus without complication Essential (primary) hypertension Rheumatoid arthritis Left knee pain Surgical History Hx of cholecystectomy Hx of section Family History Sister Fibromyalgia Social History Household Members: Spouse and Children Alcohol intake: former Patient Tobacco Use Status: Never used Tobacco Current occupational status: unemployed Review [place] [facility] deformity, Reports arthralgias, Reports joint swelling and Reports stiffness Physical Exam Vital Signs: Last Vital Signs Temp 97.4 F 12/28/23 13:19 Pulse 113 H 12/28/23 13:19 BP 128/66 12/28/23 13:19 Pulse Ox 99 12/28/23 13:19 Oxygen Delivery Method Room Air 12/28/23 13:19 BMI result Body Mass Index 33.3 Const General: cooperative, healthy appearing and comfortable Nutritional Appearance: obese Orientation/consciousness: patient oriented x3 Limitations: ambulation with cane HEENT Head: Yes normocephalic and Yes atraumatic Mouth: moist mucous membranes Resp Effort & Inspection: normal respiratory effort and able to speak in complete sentences Auscultation: rales bilateral at the base Cardio Rate: regular rate Rhythm: regular rhythm GI Inspection: No distended Palpation (GI): Soft to palpation and nontender Skin General skin exam: no rashes or lesions noted Neuro General: patient oriented x3 Extrem Other: Prominent chronic RA deformities Right wrist without swelling or tenderness but significantly reduced flexion and extension Right hand: Ulnar deviation at the MCPs with prominent synovial thickening of multiple MCPs, no active synovitis. Negative MCP squeeze test Left wrist without swelling or tenderness, significantly reduced flexion and extension Synovial thickening of few MCPs negative MCP squeeze test [place]-neck deformity of left 3rd and 5th fingers Normal nailfold capillaroscopy Normal range of motion of elbows and shoulders without pain Bilateral knee warmth Deviation of left 2nd toe No MTP tenderness Negative MTP squeeze test bilaterally Results Reviewed Results Reviewed: Ordering Physician: Sebastian Benitez MD Date of Service: 10/13/23 Procedure(s): XR hand wrist LT Accession Number(s): [id number] cc: Maya Tamayo MD; Sebastian Benitez MD~ EXAMINATION:? XR HAND WRIST LEFT XR HAND WRIST RIGHT CLINICAL INFORMATION:? Rheumatoid arthritis.?? COMPARISON:? Radiographs of left wrist from 01/27/2021 and both hands from 09/16/2009.?? TECHNIQUE:? Right hand and wrist, 4 views. Left hand and wrist, 4 views. FINDINGS: RIGHT HAND AND WRIST: There is moderate to severe loss of radiocarpal joint space with subchondral cystic changes. There is mild erosive change at the articular surface of the distal ulna. Also, there is narrowing of capitolunate and scaphocapitate joint space and faintly visible subchondral cystic changes of the distal lunate. These abnormalities could represent combination of chronic rheumatoid arthritis and superimposed osteoarthritis. Mild narrowing of triscaphe joint space.? There are very small osteophytes at the thumb metacarpophalangeal and interphalangeal joints.? Old erosions, subarticular cystic changes and joint space loss of 2nd, 3rd and 4th metacarpophalangeal joints. This represents significant worsening of the arthritis compared to 09/16/2009. There is ulnar deviation at 3rd, 4th and 5th MCP joints (worst at fifth digit). Soft tissues are swollen around the 2nd and 3rd MCP joints. No evidence of erosions at the interphalangeal joints. LEFT HAND AND WRIST: Chronic loss of radiolunate joint space and subchondral cystic changes of the radius and lunate. There is worsening of the radiolunate joint space loss compared to 01/27/2021. There is a small erosion involving the ulnar styloid.? Marginal erosions and mild joint space loss of the 5th metacarpophalangeal joint are new compared to 01/27/2021. There appear to be marginal erosive change of the head of the second metacarpal and soft tissue swelling of the 2nd MCP joint. Probable old marginal erosion of the radial aspect of the head of the thumb metacarpal. Small osteophytes are present at the mildly degenerated thumb MCP joint. Subchondral cyst at the lateral base of the middle phalanx of the 4th digit. There appear to be small erosions involving the radial base of the middle phalanx of the 3rd digit and the adjacent head of the 3rd proximal phalanx. XR/XR hand wrist LT IMPRESSION: *? In this patient with history of rheumatoid arthritis, there is slight interval worsening of the cartilage space loss of the radioscaphoid joint and new small erosion at the ulnar styloid. Also, there is new erosive change of the fifth metacarpophalangeal joint. Furthermore, small marginal erosions are seen at the third PIP joint. *? Rheumatoid arthritis involving the right hand and wrist has significantly worsened compared to 09/16/2009.?? ? EXAMINATION:? XR KNEE, LEFT? CLINICAL INFORMATION:? Left knee pain?? COMPARISON:? None available.?? TECHNIQUE:? 3 views of the left knee. FINDINGS: Joint effusion present. Bones are diffusely demineralized. Advanced degenerative changes in the medial compartment with loss of the joint space, subchondral sclerosis, remodeling and medial marginal osteophytes. [id number] degenerative changes with joint space narrowing in the lateral and patellofemoral compartments.?? XR/XR knee LT 3V IMPRESSION: Joint effusion. Advanced tricompartmental degenerative changes. ? Bones are diffusely demineralized. Additional imaging with CT scan or MRI should be considered for better visualization as these modalities are much more sensitive for detection of fracture or other underlying pathology. ? Assessment & Plan Assessment & Plan (1) Rheumatoid arthritis: Comment: +++RF+++CCP erosive dx in her 30s only took MTX for 2 weeks MTX restarted 10/2023-DC 11/2023 d.t hair loss Lef 12/2023 Code(s): M06.9 - Rheumatoid arthritis, unspecified Qualifiers: Rheumatoid arthritis location: multiple sites Rheumatoid factor presence: unspecified presence Qualified Code(s): M06.9 - Rheumatoid arthritis, unspecified Plan: This is a 58-year-old female with seropositive erosive RA who returns for follow-up. Patient took methotrexate for 5-6 weeks and discontinued it due to hair loss. she continues to have multiple swollen and tender joints and significantly elevated inflammatory markers. Will need to change DMARDs. Discussed risks and benefits of biologics verses leflunomide. patient opted for leflunomide start leflunomide 10 mg daily for 2 weeks then 20 mg daily prednisone 2.5 mg daily Labs before next visit in 2 months (2) Bilateral rales: Code(s): R09.89 - Other specified symptoms and signs involving the circulatory and respiratory systems Plan: Bibasilar, no symptoms of shortness of breath or cough. But her exercise capacity is limited by her knee pain. There is a possibility of RA-ILD. Patient is worried and gets quite anxious around doctors. Patient will need a high-resolution CT chest for further evaluation. Patient would like to postpone that CT scan as she is overwhelmed already (3) Encounter for monitoring leflunomide therapy: Code(s): Z51.81 - Encounter for therapeutic drug level monitoring; Z79.899 - Other terminal computer operator (current) drug therapy Plan: monitor safety labs Plan I spent 27 minutes reviewing patient's chart, evaluating patient, ordering diagnostic workup, counseling patient and documenting in the chart Orders: Orders Complete Blood Count Auto Diff 2 Months M06.9 - Rheumatoid arthritis, unspecified, Z51.81 - Encounter for therapeutic drug level monitoring, Z79.899 - Other terminal computer operator (current) drug therapy Comprehensive Met. Panel 2 Months M06.9 - Rheumatoid arthritis, unspecified, Z51.81 - Encounter for therapeutic drug level monitoring, Z79.899 - Other terminal computer operator (current) drug therapy C Reactive Protein 2 Months M06.9 - Rheumatoid arthritis, unspecified, Z51.81 - Encounter for therapeutic drug level monitoring, Z79.899 - Other terminal computer operator (current) drug therapy Erythrocyte Sedimentation Rate 2 Months M06.9 - Rheumatoid arthritis, unspecified, Z51.81 - Encounter for therapeutic drug level monitoring, Z79.899 - Other penitentiary (current) drug therapy Medications: New leflunomide Take 1 tab daily for 2 weeks then 2 tabs daily 120 tabs 0RF prednisone 2.5 mg PO DAILY 90 tabs 0RF Coding Level of Care Code Est Pt Level 4 (04159) Diagnoses Rheumatoid arthritis involving multiple sites, unspecified whether rheumatoid factor present M06.9 Rheumatoid arthritis location: multiple sites Rheumatoid factor presence: unspecified presence Bilateral rales R09.89 Encounter for monitoring leflunomide therapy Z51.81; Z79.899
== END 2023-12-28 13:59 | disposition home or self-care (01) ==
PROVIDERS: PCP Student in an Organized Health Care Education/Training Program; Visit Provider Student in an Organized Health Care Education/Training Program
DX: M06.9 Rheumatoid arthritis, unspecified (principal); R09.89 Other specified symptoms and signs involving the circulatory and respiratory systems; Z51.81 Encounter for therapeutic drug level monitoring; Z79.899 Other long term (current) drug therapy
CPT/HCPCS: 99214

== ENCOUNTER → 2023-12-28 13:09 | Outpatient (BNVA) | payer MEDICAID, SELFPAY | PROVIDERS: PCP Student in an Organized Health Care Education/Training Program; Visit Provider Student in an Organized Health Care Education/Training Program | DX: M06.9 Rheumatoid arthritis, unspecified (principal); Z51.81 Encounter for therapeutic drug level monitoring; R09.89 Other specified symptoms and signs involving the circulatory and respiratory systems; Z79.899 Other long term (current) drug therapy; Z79.52 Long term (current) use of systemic steroids | CPT/HCPCS: 99212 ==

== ENCOUNTER 2024-01-02 14:00 | Outpatient (RCR) | payer MEDICAID, SELFPAY ==
--- NOTE | 2023-12-13 11:57 | MHC.OT.EP ---
[address] [phone] Occupational Therapy Plan of Care Patient Name: Avril Roca Date of Evaluation: 12/13/23 Diagnosis: Rheumatoid Arthritis Pain Location: B/L shoulder 7/10, worse with use Pain free at rest in B/L hands Tenderness at B/L CMC and DRUJ Pain Score: 0 Pain Scale Used: Numeric (0 - 10) Aggravating Factors: General use Alleviating Factors: Heat, prefab neoprene orthosis MD recommended [place] but she has not bought Assessment: 58-year-old female with seropositive erosive RA, reports onset of symptoms ion her mid 30's. She has started course of prednisone w/ some improvement of pain and edema, now referred to O for cont'd assessment and conservative treatment. Today, she is reporting primary source of pain is B/L neck and shoulders, left worse than right. She reports she has done course of PT but is going to request further sessions/new order. She has B/L hand weakness with arthritic deformities noted including ulnar drift and PIP hyperextension. She has [employer]PER[employer]OR daily and requires assist w/ most self care and home care, but is hopeful she can increase her exercise participation and do more for herself at home. She will benefit from cont'd OT to address hand positioning and joint protection, as well as pain management and home exercises. Frequency and Duration: The patient will be seen 2/xwk for 3 weeks Short Term Goals: Ind w/ nighttime orthosis wear for MCP protection Ind w/ HEP including AROM and isometric exercises Pt to identify 3 enjoyable daily activities that are low stress on joints/hands Pt to discuss options for modified tasks/DME to promote Ind w/ daily activities (grippers, built up handles, reachers, etc) Shelter Goals: same as above Treatment Plan: Therapeutic Exercise Therapeutic Activity Home Exercise Program Splinting Patient Education Edema Control ADL Training Paraffin MHP Cold Packs Soft Tissue Mobilization Kinesiotaping B/L MCP ext orthosis for ulnar drift Electronically Signed By: Adelina Velarde OTR/L CHT Please Sign and return to therapist. Thank you once again for your referral.
--- NOTE | 2024-01-09 14:22 | MHC.OT.DC ---
[address] [phone] F: [phone] Occupational Therapy Discharge Note Patient Name: Avril Roca Provider: Sebastian Benitez MD Diagnosis: Rheumatoid Arthritis Date of Evaluation: 12/13/23 Date of Discharge: 01/09/24 Treatments to Date: 3 Cancellations to Date: 2 No Shows to Date: 3 Discharge Status: Visit Non-compliance Discharge Summary: 58-year-old female with seropositive erosive RA, referred to OT for conservative management techniques. We have fabricated B/L MCP block orthoses to minimize ulnar deviation and allow for joint alignment. We have educated on general joint protection and activity modification, and have started HEP w/ ROM and isometric strengthening. She has missed several appointments (2 cancels and 3 no-shows) since initial evaluation and we will be discharging from therapy services due to non-compliance policy. I anticipate she will progress with decreased pain and increased strength if following suggested home program. Electronically Signed By: Adelina Velarde, OTR/L CHT Please Sign and return to therapist, thank you for your referral.
== END 2024-01-09 14:27 | disposition home or self-care (01) ==
LOC: HO.OT 14:00
PROVIDERS: PCP Student in an Organized Health Care Education/Training Program; Visit Provider Student in an Organized Health Care Education/Training Program
DX: M06.9 Rheumatoid arthritis, unspecified (principal)
CPT/HCPCS: 29125; 97018; 97110; 97140; 97166; 97760

== ENCOUNTER 2024-01-03 16:00 | Outpatient (RCR) | payer MEDICAID, SELFPAY ==
--- NOTE | 2023-12-29 15:38 | MHC.PT.EP ---
[facility] [place] Office [place] Office [place] Office [address] [phone] F: [phone] F: [phone] F: [phone] F: [phone] Physical Therapy Plan of Care Date of Evaluation: 12/28/23 Date of Surgery: Diagnosis: B shoulder px Assessment: Avril is a pleasant 58 yo female presenting to skilled physical therapy evaluation and treatment with c/o B shoulder pain. Pt reports gradual onset of B anterior/lateral B shoulder pain L>R beginning ~2 months ago. Pt went to the [facility] ED and received shoulder x-rays. Pt has long h/o RA with widespread joint aches and pains. Pt has the most functional difficulty with sleeping, ADLs, reaching OH, and ambulation with SPC. Upon evaluation, pt presents with decreased shoulder ROM, antalgic gait, and decreased UE strength. Pt demonstrates postural deficits contributing to decreased periscapular stability and poor scapulothoracic rhythm, which is exacerbated throughout functional mobility. Avril would benefit from skilled PT services to address muscular imbalances, increase shoulder ROM, and provide postural re-education for improved functional mobility and return to PLOF. Pt is recommended to attend PT 2x/week for 4 weeks. Frequency and Duration: The patient will be seen 2x/week for 4 weeks Short Term Goals: Pt will demonstrate independence with initial HEP through teach-back method, showing proper adherence to PT Pt will be able to perform 15 consecutive scapular retractions with proper activation, showing increased periscapular stability Longterm Goals: Pt will achieve pain-free B shoulder ROM WFL, allowing sleep without disruption Pt will achieve 5/5 B UE strength necessary for improved functional reaching/ADLs Pt will improve functional mobility as noted through statistically significant increase in SPADI outcome measure Treatment Plan: Modalities to reduce pain, spasms and effusion. Manual therapy to restore motion and function. Therapeutic exercise to improve strength and flexibility. Neuromuscular re-education for posture and balance. Therapeutic activities to return to functional activities of daily living. Electronically signed by: Tosha Li, PT, DPT Please sign and return to therapist. Thank you for your referral.
--- NOTE | 2024-02-12 11:27 | MHC.PT.DC ---
[facility] [place] Office [place] Office [place] Office [address] [phone] F: [phone] F: [phone] F: [phone] F: [phone] Physical Therapy Discharge Report Diagnosis: B shoulder px Date of Surgery: Date of Evaluation: 12/28/23 Date of Discharge: 02/12/24 Treatments to Date: 2 Cancellations to Date: No Shows to Date: 4 Discharge Status: Visit Non-compliance Discharge Summary: Pt was seen for PT from 12/28/23-01/03/24. Her last attended PT session was 01/03/24. She is being D/C from skilled PT as she has had multiple no-show appointments since SOC. Pt current level of function unknown at this time Electronically signed by: Tosha Li, PT, DPT Please sign and return to therapist. Thank you for your referral.
== END 2024-02-12 11:27 | disposition home or self-care (01) ==
LOC: HO.PT 16:00
PROVIDERS: PCP Student in an Organized Health Care Education/Training Program; Visit Provider Student in an Organized Health Care Education/Training Program
DX: M19.011 Primary osteoarthritis, right shoulder (principal); M19.012 Primary osteoarthritis, left shoulder
CPT/HCPCS: 97110; 97162

== ENCOUNTER 2024-04-09 09:37 | Outpatient (REF) | payer MEDICAID, SELFPAY ==
[2024-04-09 09:47] LABS: MANUAL DIFF FLAG NO
[2024-04-09 10:41] LABS: Basophils Absolute Auto 0.1 X10*3/uL (0.0-0.2); Basophils Percent Auto 0.7 % (0-2); Eosinophils Absolute Auto 0.2 X10*3/uL (0.0-0.4); Eosinophils Percent Auto 1.5 % (0-4); Hematocrit 38.7 % (37.0-47.0); Hemoglobin 12.5 g/dl (12.0-16.0); Imm Gran Pct Auto 0.7 % (0.0-0.4); Lymphocytes Absolute Auto 3.5 X10*3/uL (1.2-4.9); Mean Corpuscular HGB Conc 32.3 g/dl (31.0-35.0); Mean Corpuscular Hemoglobin 27.9 pg (27.0-33.0); Mean Corpuscular Volume 86.4 fL (80.0-98.0); Mean Platelet Volume 10.7 fL (9.4-12.3); Monocytes Absolute Auto 1.3 X10*3/uL (0.1-1.2); Monocytes Percent Auto 8.8 % (2-11); Neutrophils Absolute Auto 9.9 x10*3/uL (2.0-8.3); Neutrophils Percent Auto 65.3 % (45-73); Platelet Count 412 X10*3/uL (160-400); Red Blood Count 4.48 X10*6/uL (4.20-5.50); Red Cell Distribution Width 14.5 % (11.0-16.0); White Blood Count 15.1 X10*3/uL (4.8-10.8)
[2024-04-09 11:19] LABS: Erythrocyte Sedimentation Rate 52 MM/HR (0-20)
[2024-04-09 11:43] LABS: Alanine Aminotransferase 29 U/L (0-31); Albumin Level 4.2 g/dL (3.5-5.0); Alkaline Phosphatase 48 U/L (39-117); Anion Gap 16 (12-20); Aspartate Amino Transferase 21 U/L (5-31); Bilirubin Total 0.4 mg/dL (0.0-1.0); Blood Urea Nitrogen 7 mg/dL (9-16); C Reactive Protein 5.33 mg/dL (< or = 0.50); Calcium 9.6 mg/dL (8.4-10.2); Carbon Dioxide 28 mmol/L (22-29); Chloride 99 mmol/L (96-108); Estimated Glomerular Filt Rate > 60; Glucose Random 152 mg/dL (60-115); Potassium 3.5 mmol/L (3.3-5.1); Sodium 139 mmol/L (135-145)
== END 2024-04-09 09:38 | disposition home or self-care (01) ==
LOC: HO.LAB 09:37
PROVIDERS: PCP Student in an Organized Health Care Education/Training Program; Visit Provider Student in an Organized Health Care Education/Training Program
DX: M06.9 Rheumatoid arthritis, unspecified (principal); Z51.81 Encounter for therapeutic drug level monitoring; Z79.899 Other long term (current) drug therapy
CPT/HCPCS: 36415; 80053; 85025; 85652; 86140

== ENCOUNTER 2024-05-15 13:52 | Outpatient (AMB) | payer MEDICAID, SELFPAY ==
[2024-05-15 14:10] VITALS: BP 144/72; PULSE 105; O2SAT 96; BMI 31.6
--- NOTE | 2024-05-15 14:10 | MHC.OFFVIS ---
Vital Signs 05/15/24 14:10 Height 5 ft 2 in Weight 172 lb 13.478 oz BMI 31.6 BP 144/72 H Blood Pressure Location Lt brachial Position Sitting Pulse 105 H Pulse Source Pulse Oximeter Pulse Oximetry (%) 96 Oxygen Delivery Method Room Air Intake Visit Reasons: RA/CM Intake Note: Patient last seen 12/28/23 presents today for follow up and test results. Allergies codeine [CODEINE] Allergy (Unknown, Unverified 05/15/24 14:15) UNKNOWN meloxicam Adverse Reaction (Mild, Verified 05/15/24 14:15) Nausea Medication List - Last Reconciled 05/15/24 by Sebastian Benitez MD acetaminophen 500 - 1,000 mg PO Q6-8H PRN albuterol sulfate 90 mcg/actuation (Ventolin HFA) 2 puffs inhalation QID PRN amlodipine 10 mg PO DAILY ascorbic acid (vitamin C) 500 mg PO BID aspirin 81 mg PO DAILY atorvastatin 10 mg PO DAILY cholecalciferol (vitamin D3) 125 mcg PO QAM hydrochlorothiazide 25 mg PO DAILY ibuprofen 600 mg PO TID leflunomide 20 mg PO DAILY lidocaine 5% 1 patch topical DAILY losartan 50 mg PO DAILY metformin 1,000 mg PO BID metformin 500 mg PO TIDWMEAL multivitamin 1 tab PO QAM prednisone 5 mg (2 x 2.5 mg) PO DAILY HPI Comments Details: 59-year-old female with seropositive erosive RA returns for follow-up. She has been taking leflunomide 20 mg daily for the last 3 months, she also takes prednisone 5 mg daily as needed for joint pain and swelling. She uses prednisone about 3 times a week. She states that she feels about 60% improved overall. But she continues to have left wrist pain, bilateral knee pain. Initial history: This is a 58-year-old female with RA who presents as a new patient. Patient states that she was diagnosed with rheumatoid arthritis in her 30s when she started having swelling and deformity of her left 2nd toe. She was evaluated by [facility] , she was started on methotrexate. She states that she took it for approximately 2 months. She was worried about side effects. She states that she has been doing fairly well overall over the years. Gets intermittent episodes of joint pain swelling and stiffness. Most recent flare-up was around 4 months ago when she started having significant left knee pain and intermittent left shoulder pain. She usually would get a prednisone taper from her PCP but it would cause a spike in her blood sugar. She has been taking ibuprofen 800 mg t.i.d.. Currently her most severe pain is her left knee. She received a steroid injection by her PCP recently and it did not help. Patient is unaware of any family history of an autoimmune rheumatic disease. She denies any history of DVT/PE. FOR[facility], [facility] Medical History Type 2 diabetes mellitus without complication Essential (primary) hypertension Rheumatoid arthritis Left knee pain Surgical History Hx of cholecystectomy Hx of section Family History Sister Fibromyalgia Social History Household Members: Spouse and Children Alcohol intake: former Patient Tobacco Use Status: Never used Tobacco Current occupational status: unemployed Review of Systems [facility] [place] Reports deformity, Reports arthralgias, Reports joint swelling and Reports stiffness Physical Exam Vital Signs: Last Vital Signs Pulse 105 H 05/15/24 14:10 BP 144/72 H 05/15/24 14:10 Pulse Ox 96 05/15/24 14:10 Oxygen Delivery Method Room Air 05/15/24 14:10 BMI result Body Mass Index 31.6 Const General: cooperative, healthy appearing and comfortable Nutritional Appearance: obese Orientation/consciousness: patient oriented x3 Limitations: ambulation with cane HEENT Head: Yes normocephalic and Yes atraumatic Mouth: moist mucous membranes Resp Effort & Inspection: normal respiratory effort and able to speak in complete sentences Auscultation: rales bilateral at the base Cardio Rate: regular rate Rhythm: regular rhythm GI Inspection: No distended Palpation (GI): Soft to palpation and nontender Skin General skin exam: no rashes or lesions noted Neuro General: patient oriented x3 Extrem Other: Prominent chronic RA deformities Right wrist without swelling or tenderness but significantly reduced flexion and extension Right hand: Ulnar deviation at the MCPs with prominent synovial thickening of multiple MCPs, no active synovitis. Negative MCP squeeze test Left wrist without swelling or tenderness, significantly reduced flexion and extension Synovial thickening of few MCPs negative MCP squeeze test [place]-neck deformity of left 3rd and 5th fingers Normal nailfold capillaroscopy Normal range of motion of elbows and shoulders without pain Bilateral knee warmth tenderness Deviation of left 2nd toe No MTP tenderness Negative MTP squeeze test bilaterally Results Reviewed Results Reviewed: Ordering Physician: Sebastian Benitez MD Date of Service: 10/13/23 Procedure(s): XR hand wrist LT Accession Number(s): [id number] cc: Maya Tamayo MD; Sebastian Benitez MD~ EXAMINATION:? XR HAND WRIST LEFT XR HAND WRIST RIGHT CLINICAL INFORMATION:? Rheumatoid arthritis.?? COMPARISON:? Radiographs of left wrist from 01/27/2021 and both hands from 09/16/2009.?? TECHNIQUE:? Right hand and wrist, 4 views. Left hand and wrist, 4 views. FINDINGS: RIGHT HAND AND WRIST: There is moderate to severe loss of radiocarpal joint space with subchondral cystic changes. There is mild erosive change at the articular surface of the distal ulna. Also, there is narrowing of capitolunate and scaphocapitate joint space and faintly visible subchondral cystic changes of the distal lunate. These abnormalities could represent combination of chronic rheumatoid arthritis and superimposed osteoarthritis. Mild narrowing of triscaphe joint space.? There are very small osteophytes at the thumb metacarpophalangeal and interphalangeal joints.? Old erosions, subarticular cystic changes and joint space loss of 2nd, 3rd and 4th metacarpophalangeal joints. This represents significant worsening of the arthritis compared to 09/16/2009. There is ulnar deviation at 3rd, 4th and 5th MCP joints (worst at fifth digit). Soft tissues are swollen around the 2nd and 3rd MCP joints. No evidence of erosions at the interphalangeal joints. LEFT HAND AND WRIST: Chronic loss of radiolunate joint space and subchondral cystic changes of the radius and lunate. There is worsening of the radiolunate joint space loss compared to 01/27/2021. There is a small erosion involving the ulnar styloid.? Marginal erosions and mild joint space loss of the 5th metacarpophalangeal joint are new compared to 01/27/2021. There appear to be marginal erosive change of the head of the second metacarpal and soft tissue swelling of the 2nd MCP joint. Probable old marginal erosion of the radial aspect of the head of the thumb metacarpal. Small osteophytes are present at the mildly degenerated thumb MCP joint. Subchondral cyst at the lateral base of the middle phalanx of the 4th digit. There appear to be small erosions involving the radial base of the middle phalanx of the 3rd digit and the adjacent head of the 3rd proximal phalanx. XR/XR hand wrist LT IMPRESSION: *? In this patient with history of rheumatoid arthritis, there is slight interval worsening of the cartilage space loss of the radioscaphoid joint and new small erosion at the ulnar styloid. Also, there is new erosive change of the fifth metacarpophalangeal joint. Furthermore, small marginal erosions are seen at the third PIP joint. *? Rheumatoid arthritis involving the right hand and wrist has significantly worsened compared to 09/16/2009.?? ? EXAMINATION:? XR KNEE, LEFT? CLINICAL INFORMATION:? Left knee pain?? COMPARISON:? None available.?? TECHNIQUE:? 3 views of the left knee. FINDINGS: Joint effusion present. Bones are diffusely demineralized. Advanced degenerative changes in the medial compartment with loss of the joint space, subchondral sclerosis, remodeling and medial marginal osteophytes. [id number] degenerative changes with joint space narrowing in the lateral and patellofemoral compartments.?? XR/XR knee LT 3V IMPRESSION: Joint effusion. Advanced tricompartmental degenerative changes. ? Bones are diffusely demineralized. Additional imaging with CT scan or MRI should be considered for better visualization as these modalities are much more sensitive for detection of fracture or other underlying pathology. ? Assessment & Plan Assessment & Plan (1) Rheumatoid arthritis: Comment: +++RF+++CCP erosive dx in her 30s only took MTX for 2 weeks MTX restarted 10/2023-DC 11/2023 d.t hair loss Lef 12/2023 partially effective Code(s): M06.9 - Rheumatoid arthritis, unspecified Category: Medical Qualifiers: Rheumatoid arthritis location: multiple sites Rheumatoid factor presence: unspecified presence Qualified Code(s): M06.9 - Rheumatoid arthritis, unspecified Plan: This is a 59-year-old female with seropositive erosive RA who returns for follow-up. She is on leflunomide 20 mg daily and prednisone 5 mg once daily as needed for pain. Patient states that about 60% better however on exam continues to have multiple swollen and tender joints. Inflammatory markers are significantly elevated. We will need to add DMARDs Discussed risks and benefits of TNF inhibitors. Patient agreed to proceed. Will start prior authorization for Enbrel Continue leflunomide 20 mg daily Can take prednisone 5 mg once daily as needed Labs before next visit in 3 months (2) Bilateral rales: Code(s): R09.89 - Other specified symptoms and signs involving the circulatory and respiratory systems Category: Medical Plan: Bibasilar, no symptoms of shortness of breath or cough. But her exercise capacity is limited by her knee pain. There is a possibility of RA-ILD. Patient is worried and gets quite anxious around doctors. Patient will need a high-resolution CT chest for further evaluation. Patient would like to postpone that CT scan as she is overwhelmed already (3) Encounter for monitoring leflunomide therapy: Code(s): Z51.81 - Encounter for therapeutic drug level monitoring; Z79.899 - Other vermin exterminator (current) drug therapy Category: Medical Plan: monitor safety labs Side effects of Enbrel were discussed with the patient in detail including increased risk of infection, demyelinating disease, reactivation of latent TB, possible increased risk of solid and skin tumors. Patient fully aware. Advised patient to seek medical care [facility] if patient has an infection and advised patient to stop the medication until the infection is resolved. Plan I spent 27 minutes reviewing patient's chart, evaluating patient, ordering diagnostic workup, counseling patient and documenting in the chart Orders: Orders Complete Blood Count Auto Diff 3 Months M06.9 - Rheumatoid arthritis, unspecified, Z51.81 - Encounter for therapeutic drug level monitoring, Z79.899 - Other [place] [facility] drug therapy C Reactive Protein 3 Months M06.9 - Rheumatoid arthritis, unspecified, Z51.81 - Encounter for therapeutic drug level monitoring, Z79.899 - Other [place] [facility] drug therapy Comprehensive Met. Panel 3 Months M06.9 - Rheumatoid arthritis, unspecified, Z51.81 - Encounter for therapeutic drug level monitoring, Z79.899 - Other vermin exterminator (current) drug therapy Erythrocyte Sedimentation Rate 3 Months M06.9 - Rheumatoid arthritis, unspecified, Z51.81 - Encounter for therapeutic drug level monitoring, Z79.899 - Other [place] [facility] drug therapy Medications: Refilled leflunomide 20 mg PO DAILY 90 tabs 0RF prednisone 5 mg (2 x 2.5 mg) PO DAILY 60 tabs 0RF Coding Level of Care Code Est Pt Level 4 (68540) Diagnoses Rheumatoid arthritis involving multiple sites, unspecified whether rheumatoid factor present M06.9 Rheumatoid arthritis location: multiple sites Rheumatoid factor presence: unspecified presence Bilateral rales R09.89 Encounter for monitoring leflunomide therapy Z51.81; Z79.899
== END 2024-05-15 14:51 | disposition home or self-care (01) ==
PROVIDERS: PCP Student in an Organized Health Care Education/Training Program; Referring Provider Student in an Organized Health Care Education/Training Program; Visit Provider Student in an Organized Health Care Education/Training Program
DX: M06.9 Rheumatoid arthritis, unspecified (principal); R09.89 Other specified symptoms and signs involving the circulatory and respiratory systems; Z51.81 Encounter for therapeutic drug level monitoring; Z79.899 Other long term (current) drug therapy
CPT/HCPCS: 99214

== ENCOUNTER → 2024-05-15 13:52 | Outpatient (BNVA) | payer MEDICAID, SELFPAY | PROVIDERS: PCP Student in an Organized Health Care Education/Training Program; Visit Provider Student in an Organized Health Care Education/Training Program | DX: M06.9 Rheumatoid arthritis, unspecified (principal); R09.89 Other specified symptoms and signs involving the circulatory and respiratory systems; Z51.81 Encounter for therapeutic drug level monitoring; Z79.899 Other long term (current) drug therapy | CPT/HCPCS: 99212 ==

== ENCOUNTER → 2024-06-03 14:51 | Outpatient (BNVA) | payer MEDICAID, SELFPAY | PROVIDERS: PCP Student in an Organized Health Care Education/Training Program; Visit Provider Student in an Organized Health Care Education/Training Program ==

== ENCOUNTER 2024-08-14 13:51 | Outpatient (REF) | payer MEDICAID, SELFPAY ==
[2024-08-14 14:11] LABS: MANUAL DIFF FLAG NO
[2024-08-14 15:02] LABS: Basophils Absolute Auto 0.1 X10*3/uL (0.0-0.2); Basophils Percent Auto 0.8 % (0-2); Eosinophils Absolute Auto 0.5 X10*3/uL (0.0-0.4); Eosinophils Percent Auto 4.4 % (0-4); Hematocrit 37.8 % (37.0-47.0); Hemoglobin 12.2 g/dl (12.0-16.0); Imm Gran Pct Auto 0.9 % (0.0-0.4); Lymphocytes Absolute Auto 3.8 X10*3/uL (1.2-4.9); Lymphocytes Percent Auto 33.7 % (20-40); Mean Corpuscular HGB Conc 32.3 g/dl (31.0-35.0); Mean Corpuscular Hemoglobin 27.5 pg (27.0-33.0); Mean Corpuscular Volume 85.3 fL (80.0-98.0); Mean Platelet Volume 11.1 fL (9.4-12.3); Monocytes Absolute Auto 0.9 X10*3/uL (0.1-1.2); Monocytes Percent Auto 8.1 % (2-11); Neutrophils Absolute Auto 5.9 x10*3/uL (2.0-8.3); Neutrophils Percent Auto 52.1 % (45-73); Platelet Count 361 X10*3/uL (160-400); Red Blood Count 4.43 X10*6/uL (4.20-5.50); Red Cell Distribution Width 14.5 % (11.0-16.0); White Blood Count 11.3 X10*3/uL (4.8-10.8)
[2024-08-14 15:33] LABS: Alanine Aminotransferase 23 U/L (0-31); Albumin Level 3.9 g/dL (3.5-5.0); Alkaline Phosphatase 51 U/L (39-117); Anion Gap 17 (12-20); Aspartate Amino Transferase 21 U/L (5-31); Bilirubin Total 0.3 mg/dL (0.0-1.0); Blood Urea Nitrogen 8 mg/dL (9-16); C Reactive Protein 5.57 mg/dL (< or = 0.50); Calcium 9.9 mg/dL (8.4-10.2); Carbon Dioxide 26 mmol/L (22-29); Chloride 101 mmol/L (96-108); Estimated Glomerular Filt Rate > 60; Glucose Random 111 mg/dL (60-115); Potassium 3.5 mmol/L (3.3-5.1); Sodium 140 mmol/L (135-145); Total Protein 7.5 g/dL (6.5-8.0)
[2024-08-14 15:59] LABS: Erythrocyte Sedimentation Rate 66 MM/HR (0-20)
== END 2024-08-14 13:52 | disposition home or self-care (01) ==
LOC: HO.LAB 13:51
PROVIDERS: PCP Student in an Organized Health Care Education/Training Program; Visit Provider Student in an Organized Health Care Education/Training Program
DX: M06.9 Rheumatoid arthritis, unspecified (principal); Z51.81 Encounter for therapeutic drug level monitoring; Z79.899 Other long term (current) drug therapy
CPT/HCPCS: 36415; 80053; 85025; 85652; 86140

== ENCOUNTER 2024-08-15 15:43 | Outpatient (AMB) | payer MEDICAID, SELFPAY ==
--- NOTE | 2024-08-15 15:47 | MHC.OFFVIS ---
Vital Signs 08/15/24 15:48 Height 5 ft 2 in Weight 171 lb 8.314 oz BMI 31.4 BP 142/70 H Blood Pressure Location Rt brachial Position Sitting Pulse 112 H Pulse Source Pulse Oximeter Intake Visit Reasons: RA/CM Intake Note: Patient was last seen by Doctor Sebastian Benitez on 05/15/24. Presents today for RA follow up and test results. 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 Required: No Accompanied by: Self / Same As Patient Allergies codeine [CODEINE] Allergy (Unknown, Verified 08/15/24 15:48) UNKNOWN meloxicam Adverse Reaction (Mild, Verified 08/15/24 15:48) Nausea Medication List - Last Reconciled 08/15/24 by Sebastian Benitez MD acetaminophen 500 - 1,000 mg PO Q6-8H PRN albuterol sulfate 90 mcg/actuation (Ventolin HFA) 2 puffs inhalation QID PRN amlodipine 10 mg PO DAILY ascorbic acid (vitamin C) 500 mg PO BID aspirin 81 mg PO DAILY atorvastatin 10 mg PO DAILY azelastine 1 spray intranasal BID cholecalciferol (vitamin D3) 125 mcg PO QAM empagliflozin (Jardiance) 10 mg PO DAILY Enbrel SureClick (etanercept) 50 mg subcut QWEEK NS hydrochlorothiazide 25 mg PO DAILY ibuprofen 600 mg PO TID leflunomide 20 mg PO DAILY lidocaine 5% 1 patch topical DAILY losartan 50 mg PO DAILY metformin 1,000 mg PO BID metformin 500 mg PO TIDWMEAL multivitamin 1 tab PO QAM prednisone 5 mg (2 x 2.5 mg) PO DAILY PRN triamcinolone acetonide 0.1% 1 appl topical QWEEK HPI Comments Details: 59-year-old female with seropositive erosive RA returns for follow-up. She is on leflunomide 20 mg daily and started Enbrel 3 months ago. Has been compliant with it. Well-tolerated. She has noticed injection site reactions that are slightly painful. She ices the injection area before and after injection. She states that the injection site reactions are improving over time. She takes prednisone 5 mg once daily as needed for joint pains. She uses it about twice a week at the most. She states that she feels about 85% improvement in her overall joint pains since Enbrel was started. She stated that her whole household had a respiratory infection last week and she is recovering from it. Initial history: This is a 58-year-old female with RA who presents as a new patient. Patient states that she was diagnosed with rheumatoid arthritis in her 30s when she started having swelling and deformity of her left 2nd toe. She was evaluated by Electrical High Tension Tester , she was started on methotrexate. She states that she took it for approximately 2 months. She was worried about side effects. She states that she has been doing fairly well overall over the years. Gets intermittent episodes of joint pain swelling and stiffness. Most recent flare-up was around 4 months ago when she started having significant left knee pain and intermittent left shoulder pain. She usually would get a prednisone taper from her PCP but it would cause a spike in her blood sugar. She has been taking ibuprofen 800 mg t.i.d.. Currently her most severe pain is her left knee. She received a steroid injection by her PCP recently and it did not help. Patient is unaware of any family history of an autoimmune rheumatic disease. She denies any history of DVT/PE. [facility] Medical History Type 2 diabetes mellitus without complication Essential (primary) hypertension Rheumatoid arthritis Left knee pain Surgical History Hx of cholecystectomy Hx of section Family History Sister Fibromyalgia Social History Household Members: Spouse and Children Alcohol intake: former Patient Tobacco Use Status: Never used Tobacco Current occupational status: unemployed Female Reproductive History Menstrual Total pregnancies: 9 Full term: 9 Number of Living Children: [address] [facility] Reports arthralgias, Reports joint swelling and Reports stiffness Physical Exam Vital Signs: Last Vital Signs Pulse 112 H 08/15/24 15:48 BP 142/70 H 08/15/24 15:48 BMI result Body Mass Index 31.4 Const General: cooperative, healthy appearing and comfortable Nutritional Appearance: obese Orientation/consciousness: patient oriented x3 Limitations: ambulation with cane HEENT Head: Yes normocephalic and Yes atraumatic Mouth: moist mucous membranes Resp Effort & Inspection: normal respiratory effort and able to speak in complete sentences Auscultation: rales bilateral at the base Cardio Rate: regular rate Rhythm: regular rhythm GI Inspection: No distended Palpation (GI): Soft to palpation and nontender Skin Other: Subtle erythema in the rash at the Enbrel injection site on her right thigh Neuro General: patient oriented x3 Extrem Other: Prominent chronic RA deformities Right wrist without swelling or tenderness but significantly reduced extension, flexion is only mildly limited Right hand: Ulnar deviation at the MCPs with prominent synovial thickening of multiple MCPs, no active synovitis. Negative MCP squeeze test. Normal plumber helper strength Left wrist without swelling or tenderness, significantly reduced extension. 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 Patient has a patch on top of it. She states it is natural treatment Deviation of left 2nd toe No MTP tenderness Negative MTP squeeze test bilaterally Results Reviewed Results Reviewed: Ordering Physician: Sebastian Benitez MD Date of Service: 10/13/23 Procedure(s): XR hand wrist LT Accession Number(s): [id number] cc: Maya Tamayo MD; Sebastian Benitez MD~ EXAMINATION:? XR HAND WRIST LEFT XR HAND WRIST RIGHT CLINICAL INFORMATION:? Rheumatoid arthritis.?? COMPARISON:? Radiographs of left wrist from 01/27/2021 and both hands from 09/16/2009.?? TECHNIQUE:? Right hand and wrist, 4 views. Left hand and wrist, 4 views. FINDINGS: RIGHT HAND AND WRIST: There is moderate to severe loss of radiocarpal joint space with subchondral cystic changes. There is mild erosive change at the articular surface of the distal ulna. Also, there is narrowing of capitolunate and scaphocapitate joint space and faintly visible subchondral cystic changes of the distal lunate. These abnormalities could represent combination of chronic rheumatoid arthritis and superimposed osteoarthritis. Mild narrowing of triscaphe joint space.? There are very small osteophytes at the thumb metacarpophalangeal and interphalangeal joints.? Old erosions, subarticular cystic changes and joint space loss of 2nd, 3rd and 4th metacarpophalangeal joints. This represents significant worsening of the arthritis compared to 09/16/2009. There is ulnar deviation at 3rd, 4th and 5th MCP joints (worst at fifth digit). Soft tissues are swollen around the 2nd and 3rd MCP joints. No evidence of erosions at the interphalangeal joints. LEFT HAND AND WRIST: Chronic loss of radiolunate joint space and subchondral cystic changes of the radius and lunate. There is worsening of the radiolunate joint space loss compared to 01/27/2021. There is a small erosion involving the ulnar styloid.? Marginal erosions and mild joint space loss of the 5th metacarpophalangeal joint are new compared to 01/27/2021. There appear to be marginal erosive change of the head of the second metacarpal and soft tissue swelling of the 2nd MCP joint. Probable old marginal erosion of the radial aspect of the head of the thumb metacarpal. Small osteophytes are present at the mildly degenerated thumb MCP joint. Subchondral cyst at the lateral base of the middle phalanx of the 4th digit. There appear to be small erosions involving the radial base of the middle phalanx of the 3rd digit and the adjacent head of the 3rd proximal phalanx. XR/XR hand wrist LT IMPRESSION: *? In this patient with history of rheumatoid arthritis, there is slight interval worsening of the cartilage space loss of the radioscaphoid joint and new small erosion at the ulnar styloid. Also, there is new erosive change of the fifth metacarpophalangeal joint. Furthermore, small marginal erosions are seen at the third PIP joint. *? Rheumatoid arthritis involving the right hand and wrist has significantly worsened compared to 09/16/2009.?? ? EXAMINATION:? XR KNEE, LEFT? CLINICAL INFORMATION:? Left knee pain?? COMPARISON:? None available.?? TECHNIQUE:? 3 views of the left knee. FINDINGS: Joint effusion present. Bones are diffusely demineralized. Advanced degenerative changes in the medial compartment with loss of the joint space, subchondral sclerosis, remodeling and medial marginal osteophytes. Akplpbda-cy-fldidb degenerative changes with joint space narrowing in the lateral and patellofemoral compartments.?? XR/XR knee LT 3V IMPRESSION: Joint effusion. Advanced tricompartmental degenerative changes. ? Bones are diffusely demineralized. Additional imaging with CT scan or MRI should be considered for better visualization as these modalities are much more sensitive for detection of fracture or other underlying pathology. ? Assessment & Plan Assessment & Plan (1) Rheumatoid arthritis: Comment: +++RF+++CCP erosive dx in her 30s only took MTX for 2 weeks MTX restarted 10/2023-DC 11/2023 d.t hair loss Lef 12/2023 partially effective Enbrel added 04/2024 effective Code(s): M06.9 - Rheumatoid arthritis, unspecified Category: Medical Qualifiers: Rheumatoid arthritis location: multiple sites Rheumatoid factor presence: unspecified presence Qualified Code(s): M06.9 - Rheumatoid arthritis, unspecified Plan: This is a 59-year-old female with seropositive erosive RA who returns for follow-up. She is on leflunomide 20 mg daily , Enbrel 50 mg subcutaneously weekly and prednisone 5 mg once daily as needed for pain. She uses prednisone about twice a week. She states that she feels about 85% overall improvement since Enbrel was started 3 months ago. On exam patient is doing much better. Continue current meds Labs before next visit in 3 months (2) Bilateral rales: Code(s): R09.89 - Other specified symptoms and signs involving the circulatory and respiratory systems Category: Medical Plan: Bibasilar, no symptoms of shortness of breath or cough. But her exercise capacity is limited by her knee pain. There is a possibility of RA-ILD. Patient is worried and gets quite anxious around doctors. Patient will need a high-resolution CT chest for further evaluation. We again discussed the need for the CT scan of the chest. Patient will think about it. (3) Encounter for monitoring leflunomide therapy: Code(s): Z51.81 - Encounter for therapeutic drug level monitoring; Z79.899 - Other termite treater helper (current) drug therapy Category: Medical Plan: monitor safety labs Side effects of Enbrel were discussed with the patient in detail including increased risk of infection, demyelinating disease, reactivation of latent TB, possible increased risk of solid and skin tumors. Patient fully aware. Advised patient to seek medical care TERESA if patient has an infection and advised patient to stop the medication until the infection is resolved. She has been having injection site reactions of Enbrel. They are minimal. She has been icing the area before and after injection. She still gets mild injection site reactions. Advised patient to use triamcinolone cream Plan I spent 27 minutes reviewing patient's chart, evaluating patient, ordering diagnostic workup, counseling patient and documenting in the chart Orders: Orders Erythrocyte Sedimentation Rate 3 Months M06.9 - Rheumatoid arthritis, unspecified, Z51.81 - Encounter for therapeutic drug level monitoring, Z79.899 - Other termite treater helper (current) drug therapy Complete Blood Count Auto Diff 3 Months M06.9 - Rheumatoid arthritis, unspecified, Z51.81 - Encounter for therapeutic drug level monitoring, Z79.899 - Other termite treater helper (current) drug therapy Comprehensive Met. Panel 3 Months M06.9 - Rheumatoid arthritis, unspecified, Z51.81 - Encounter for therapeutic drug level monitoring, Z79.899 - Other termite treater helper (current) drug therapy C Reactive Protein 3 Months M06.9 - Rheumatoid arthritis, unspecified, Z51.81 - Encounter for therapeutic drug level monitoring, Z79.899 - Other termite treater helper (current) drug therapy Medications: New triamcinolone acetonide 0.1% Use as needed for injection site reactions 1 appl topical QWEEK 15 grams 1RF Refilled leflunomide 20 mg PO DAILY 90 tabs 1RF Coding Level of Care Code Est Pt Level 4 (14061) Complex EM visit Add On G2211 Diagnoses Rheumatoid arthritis involving multiple sites, unspecified whether rheumatoid factor present M06.9 Rheumatoid arthritis location: multiple sites Rheumatoid factor presence: unspecified presence Bilateral rales R09.89 Encounter for monitoring leflunomide therapy Z51.81; Z79.899
[2024-08-15 15:48] VITALS: BP 142/70; PULSE 112; BMI 31.4
== END 2024-08-15 16:24 | disposition home or self-care (01) ==
PROVIDERS: PCP Student in an Organized Health Care Education/Training Program; Visit Provider Student in an Organized Health Care Education/Training Program
DX: M06.9 Rheumatoid arthritis, unspecified (principal); R09.89 Other specified symptoms and signs involving the circulatory and respiratory systems; Z51.81 Encounter for therapeutic drug level monitoring; Z79.899 Other long term (current) drug therapy
CPT/HCPCS: 99214

== ENCOUNTER → 2024-08-15 15:43 | Outpatient (BNVA) | payer MEDICAID, SELFPAY | PROVIDERS: PCP Student in an Organized Health Care Education/Training Program; Visit Provider Student in an Organized Health Care Education/Training Program | DX: M06.9 Rheumatoid arthritis, unspecified (principal); R09.89 Other specified symptoms and signs involving the circulatory and respiratory systems; Z51.81 Encounter for therapeutic drug level monitoring; Z79.899 Other long term (current) drug therapy | CPT/HCPCS: 99212 ==

== ENCOUNTER 2025-01-20 15:02 | Outpatient (REF) | payer MEDICAID, SELFPAY ==
[2025-01-20 15:19] LABS: MANUAL DIFF FLAG NO
[2025-01-20 15:50] LABS: Basophils Absolute Auto 0.1 X10*3/uL (0.0-0.2); Basophils Percent Auto 0.9 % (0-2); Eosinophils Absolute Auto 0.4 X10*3/uL (0.0-0.4); Hemoglobin 12.3 g/dl (12.0-16.0); Imm Gran Abs Auto 0.08 X10*3/uL (0.00-0.03); Imm Gran Pct Auto 0.7 % (0.0-0.4); Lymphocytes Absolute Auto 4.4 X10*3/uL (1.2-4.9); Lymphocytes Percent Auto 37.8 % (20-40); Mean Corpuscular HGB Conc 30.8 g/dl (31.0-35.0); Mean Corpuscular Hemoglobin 26.4 pg (27.0-33.0); Mean Corpuscular Volume 85.8 fL (80.0-98.0); Mean Platelet Volume 10.1 fL (9.4-12.3); Monocytes Percent Auto 8.3 % (2-11); Neutrophils Absolute Auto 5.8 x10*3/uL (2.0-8.3); Neutrophils Percent Auto 49.3 % (45-73); Platelet Count 408 X10*3/uL (160-400); Red Blood Count 4.66 X10*6/uL (4.20-5.50); Red Cell Distribution Width 14.6 % (11.0-16.0); White Blood Count 11.7 X10*3/uL (4.8-10.8)
[2025-01-20 16:32] LABS: Erythrocyte Sedimentation Rate 54 MM/HR (0-20)
--- OUTSIDE RECORDS SUMMARY | 2025-01-20 16:58 | XMS_ITS | Clinical Summary ---
Author Organization [facility] ity Address [address] [place] [address] Care Team Providers Care Senior Reactor Operator Name Role Phone Unavailable Primary Care Provider Unavailabl e Social History Tobacco Use Types Packs/Day Years Used Date Smoking Tobacco: Never Assessed Comments Unknown Sex and Gender Information Value Date Recorded Sex Assigned at Not on file Legal Sex Female 5:08 PM EST Gender Identity Not on file Sexual Orientation Not on file Plan of Treatment Health Maintenance Due Date Last Done Comments Breast Cancer Screening 1965 DTaP,Tdap,and Td Vaccines (1 - Tdap) 1983 Cervical Cancer Screening: P ap Smear 1985 Pneumococcal Vaccine: 50+ Ye ars (1 of 1 - PCV) 2014 Zoster Vaccines (1 of 2) 2014 Colorectal Cancer Screening: Colonoscopy 09/21/2022 Depression Screening 09/21/2022 HIV Screening 09/21/2022 Hepatitis C Screening 09/21/2022 Social Influencers of Health Screening 09/21/2022 COVID-19 Vaccine ( - 2023-2 5 season) 2024 Influenza Vaccine (#1) 2024 RSV Immunization Patients 60 + Years Old (1 - 1-dose 75+ series) 2039 HIB Vaccines Aged Out No longer eligi ble based on patient's age to complete this topic HPV Vaccines Aged Out No longer eligi ble based on patient's age to complete this topic Hepatitis A Vaccines Aged Out No long er eligible based on patient's age to complete this topic Hepatitis B Vaccines Aged Out No long er eligible based on patient's age to complete this topic IPV Vaccines Aged Out No longer eligi ble based on patient's age to complete this topic MMR Vaccines Aged Out No longer eligi ble based on patient's age to complete this topic Meningococcal ACWY Vaccine Aged Out N o longer eligible based on patient's age to complete this topic Meningococcal B Vacine Aged Out No lo nger eligible based on patient's age to complete this topic Pneumococcal Vaccine: Pediat rics (0 to 5 Years) and At-Risk Patients (6 to 64 Years) Aged Out No longer eligible b ased on patient's age to complete this topic RSV Immunization Patients Un lorenzo 20 months Aged Out No longer eligible b ased on patient's age to complete this topic Varicella Vaccines Aged Out No longer eligible based on patient's age to complete this topic
--- OUTSIDE RECORDS SUMMARY | 2025-01-20 16:58 | XMS_ITS | Encounter Summary ---
Author Organization [employer] Address [address] [facility] [address] [place] [address] Care Team Providers Care Guitar Technician Name Role Phone Maya Tamayo MD Primary Care Provider [phone] Reason for Visit * Reason Onset Date Comments Medication Question 08/11/2023 Encounter Details Date Type Department Care Team ([facility] Contact Info) Description 08/11/2023 Telephone [facility] MED & PEDS [address] [place] [address] Maya Tamayo MD [address] [place] [address] Medication Question Social History Tobacco Use Types Packs/Day Years Used Date Smoking Tobacco: Never Passive Smoke Exposure: Never Smokeless Tobacco: Never Alcohol Use Standard Drinks/Week Comments Never 0 (1 standard drink = 0.6 oz pur e alcohol) Depression Answer Date Recorded Patient Health Questionnaire-9 Score 0 10/26/2022 Housing Stability Answer Date Recorded What is your housing situation today? I have nick [place] 08/07/[address] you li ve. Do you have problems with any of the following? None of the above 08/07/2023 Food Insecurity Answer Date Recorded Within the past 12 months, y ou worried that your food would run out before you got money to buy more: Never True 08/07/2023 Within the past 12 months,th e food you bought just didn't last and you didn't have enough money to get more: Never True Transportation Answer Date Recorded In the past 12 months, has l ack of transportation kept you from medical appts, meetings, work or from getting things needed for daily living? No 08/07/2023 Utilities Answer Date Recorded In the past 12 months, has t he electric, gas, oil or water company threatened to shut off services in your home? No 08/07/2023 Depression Answer Date Recorded Patient Health Questionnaire-2 Score 0 10/26/2022 Comments Unknown Sex and Gender Information Value Date Recorded Sex Assigned at Female 08/22/2022 10:16 AM EDT Legal Sex Female 10:16 AM EDT Gender Identity Female 08/22/2022 10:16 AM EDT Sexual Orientation Straight 08/22/2022 10 :16 AM EDT documented as of this encounter Miscellaneous Notes * Telephone Encounter - David Ruiz RN - 08/14/2023 5:09 PM EDT Please see triage message from Nirali Castañeda RN from 08/10/23 and advise nurse's of plan. Thanks. * Telephone Encounter - Viviana Pineda - 08/11/2023 2:14 PM EDT Tc from pt requesting a call back on regards medications. documented in this encounter Plan of Treatment Not on file documented as of this encounter Visit Diagnoses Not on filedocumented in this encounter Additional Health Concerns Assessment Noted Time PHQ-9 Depression Total Score: 0 10/26/19 23 11:02 AM EST documented as of this encounter Care Teams Guitar Technician Relationship Specialty Start Date End Date Maya Tamayo MD [address] [place] [address] PCP - General Family Medicine 03/11/20 documented as of this encounter
--- OUTSIDE RECORDS SUMMARY | 2025-01-20 16:58 | XMS_ITS | Encounter Summary ---
Author Organization [employer] Address [address] [place] [address] [address] [place] [address] Care Team Providers Care Civil Engineering Intern Name Role Phone Maya Tamayo MD Primary Care Provider [phone] Reason for Visit * Reason Onset Date Comments Referral 03/27/2023 Encounter Details Date Type Department Care Team ([facility] Contact Info) Description 03/27/2023 Telephone [facility] MED & PEDS [address] [place] [address] Maya Tamayo MD [address] [place] [address] Referral Social History Tobacco Use Types Packs/Day Years Used Date Smoking Tobacco: Never Passive Smoke Exposure: Never Smokeless Tobacco: Never Alcohol Use Standard Drinks/Week Comments Never 0 (1 standard drink = 0.6 oz pur e alcohol) Depression Answer Date Recorded Patient Health Questionnaire-9 Score 0 10/26/2022 Depression Answer Date Recorded Patient Health Questionnaire-2 Score 0 10/26/2022 Comments Unknown Sex and Gender Information Value Date Recorded Sex Assigned at Female 08/22/2022 10:16 AM EDT Legal Sex Female 10:16 AM EDT Gender Identity Female 08/22/2022 10:16 AM EDT Sexual Orientation Straight 08/22/2022 10 :16 AM EDT documented as of this encounter Miscellaneous Notes * Telephone Encounter - Sherry Agarwal - 03/27/2023 2:26 PM EDT Tc from pt requesting status on where referral for Orthopaedic Surgery was sent to? documented in this encounter Plan of Treatment Not on file documented as of this encounter Visit Diagnoses Not on filedocumented in this encounter Additional Health Concerns Assessment Noted Time PHQ-9 Depression Total Score: 0 10/26/19 23 11:02 AM EST documented as of this encounter Care Teams Civil Engineering Intern Relationship Specialty Start Date End Date Maya Tamayo MD [address] [place] [id number] PCP - General Family Medicine 03/11/20 documented as of this encounter
--- OUTSIDE RECORDS SUMMARY | 2025-01-20 16:58 | XMS_ITS | Encounter Summary ---
Author Organization [employer] Address [address] [facility] [address] [place] [address] Care Team Providers Care Doll Wigs Hackler Name Role Phone Maya Tamayo MD Primary Care Provider [phone] Reason for Visit * Reason Comments Med Refill Encounter Details Date Type Department Care Team ([facility] Contact Info) Description 09/04/2023 Refill [facility] MED & PEDS [address] [place], [place] [id number] Maya Tamayo MD [address] [place] [address] Social History Tobacco Use Types Packs/Day Years [...] AM EDT documented as of this encounter Plan of Treatment Not on file documented as of this encounter Visit Diagnoses Not on filedocumented in this encounter Additional Health Concerns Assessment Noted Time PHQ-9 Depression Total Score: 0 10/26/19 23 11:02 AM EST documented as of this encounter Care Teams Doll Wigs Hackler Relationship Specialty Start Date End Date Maya Tamayo MD [address] [place] [id number] PCP - General Family Medicine 03/11/20 documented as of this encounter
--- OUTSIDE RECORDS SUMMARY | 2025-01-20 16:58 | XMS_ITS | Encounter Summary ---
Author Organization [employer] Address [address] [facility] 7t [place] [address] Care Team Providers Care Lumber Loader Name Role Phone Maya Tamayo MD Primary Care Provider [phone] Reason for Visit * Reason Onset Date Comments New Med Request 09/26/2023 Encounter Details Date Type Department Care Team ([facility] Contact Info) Description 09/26/2023 Telephone [facility] MEDICINE [address] [place] [address] Maya Tamayo MD [address] [place] [address] New Med Request Social History Tobacco Use Types Packs/Day Years [...] encounter Miscellaneous Notes * Telephone Encounter - Britni Livingston RN - 09/28/2023 11:37 AM EST Noted. Pt informed of PCP POC. Pt agrees with plan. * Telephone Encounter - Maya Tamayo MD - 09/28/2023 11:24 AM EST Yes agree to the plan * Telephone Encounter - Britni Livingston RN - 09/27/2023 3:24 PM EST Returned call to pt regarding message below. Pt states picking up prednisone and was asking if she should take the med as PCP had previously recommended to take 1 20mg tab daily x 5 days and stop themed for another 5 days and restart again for the remainder of the 5 days. Pt advised if PCP directed pt to take med that way then pt should follow PCP instructions. Pt was concerned as pt has DM and is worried her BS would go up. Pt is asking on possible increased dose of Metformin while pt is on prednisone. Pt informed message would be sent to PCP and would be informed of POC. Pt agrees. * Telephone Encounter - Jonatan Garza - 09/26/2023 3:23 PM EST Tc from patient requesting a call back in regards of the medication Prednisone states due to being a diabetic patient was to take medication as directed previously * Telephone Encounter - Britni Livingston RN - 09/26/2023 10:39 AM EST Placed call to pt regarding message below. Pt informed of rx sent to pharmacy and reminded of importance of keeping appt with rheum on 10/12/23. Pt verbalized understanding and agrees with plan. * Telephone Encounter - Maya Tamayo MD - 09/26/2023 10:21 AM EST sent * Telephone Encounter - Britni Livingston RN - 09/26/2023 10:05 AM EST Please review message below and advise. Pt has upcoming rheumatology appt on 10/12/23. Lidocaine patches have refills but pt is requesting refill on prednisone for flare up. Please advise. * Telephone Encounter - Jonatan Garza - 09/26/2023 9:55 AM EST Tc from patient is requesting a script for Prednisone and more lidocaine (Lidoderm) 5 % patch states arthritis is flaring up and is pain in both wrists and shoulders patient refuses triage. documented in this encounter Plan of Treatment Not on file documented as of this encounter Visit Diagnoses Not on filedocumented in this encounter Additional Health Concerns Assessment Noted Time PHQ-9 Depression Total Score: 0 10/26/19 11:02 AM EST documented as of this encounter Care Teams Lumber Loader Relationship Specialty Start Date End Date Maya Tamayo MD [address] [place] [address] PCP - General Family Medicine 03/11/20 documented as of this encounter
--- OUTSIDE RECORDS SUMMARY | 2025-01-20 16:58 | XMS_ITS | Encounter Summary ---
Author Organization [employer] Address 75 [facility] 7t [place] [address] Care Team Providers Care Business Development Sales Executive Name Role Phone Maya Tamayo MD Primary Care Provider [phone] Encounter Details Date Type Department Care Team ([facility] Contact Info) Description 08/23/2024 Orders Only [facility] CHC MED & PEDS [address] [place], [place] [phone] Ace Whittaker MD [address] [place] [address] Chest congestion (Primary Dx) Social History Tobacco Use Types Packs/Day Years Used Date Smoking Tobacco: Never Passive Smoke Exposure: Never Smokeless Tobacco: Never Alcohol Use Standard Drinks/Week Comments Never 0 (1 standard drink = 0.6 oz pur e alcohol) Depression Answer Date Recorded Patient Health Questionnaire-9 Score 0 10/26/2022 Housing Stability Answer Date Recorded What is your housing situation today? I have nick [place] 03/05/[address] you li ve. Do you have problems with any of the following? None of the above 03/05/2024 Food Insecurity Answer Date Recorded Within the past 12 months, y ou worried that your food would run out before you got money to buy more: Never True 03/05/2024 Within the past 12 months,th e food you bought just didn't last and you didn't have enough money to get more: Never True Transportation Answer Date Recorded In the past 12 months, has l ack of transportation kept you from medical appts, meetings, work or from getting things needed for daily living? No 03/05/2024 Utilities Answer Date Recorded In the past 12 months, has t he electric, gas, oil or water company threatened to shut off services in your home? No 03/05/2024 Depression Answer Date Recorded Patient Health Questionnaire-2 Score 0 10/26/2022 Comments Unknown Sex and Gender Information Value Date Recorded Sex Assigned at Female 08/22/2022 10:16 AM EDT Legal Sex Female 10:16 AM EDT Gender Identity Female 08/22/2022 10:16 AM EDT Sexual Orientation Straight 08/22/2022 10 :16 AM EDT documented as of this encounter Plan of Treatment Scheduled Orders Name Type Priority Associated Diagnoses Orde r Schedule XR Chest 2 Views Imaging Routine Chest congestion Expected: 08/23/2024, Expires: 08/23/2025 documented as of this encounter Procedures Procedure Name Priority Date/Time Associated Diagnosis Comments CBC WITH AUTO DIFFERENTIAL Routine 01/20/2025 3:18 PM EDT Chest congestion documented in this encounter Results * (ABNORMAL) CBC auto differential (01/20/2025 3:18 PM EDT) White Blood Count 11.7(H) 4.8 - 10.8 X10*3/uL [facility] Red Blood Count 4.66 4.20 - 5.50 X10*6/uL [facility] Hemoglobin 12.3 12.0 - 16.0 g/dl [facility] Hematocrit 40.0 37.0 - 47.0 % [facility] Mean Corpuscular Volume 85.8 80.0 - 98.0 fL [facility] Mean Corpuscular Hemoglobin 26.4(L) 27.0 - 33.0 pg [facility] Mean Corpuscular HGB Conc 30.8(L) 31.0 - 35.0 g/dl [facility] Red Cell Distribution Width 14.6 11.0 - 16.0 % [facility] Platelet Count 408(H) 160 - 400 X10*3/uL [facility] Mean Platelet Volume 10.1 9.4 - 12.3 fL [facility] Neutrophils Percent Auto 49.3 45 - 73 % [facility] Imm Gran Pct Auto 0.7(H) 0.0 - 0.4 % [facility] Lymphocytes Percent Auto 37.8 20 - 40 % [facility] Monocytes Percent Auto 8.3 2 - 11 % [facility] Eosinophils Percent Auto 3.0 0 - 4 % [facility] Basophils Percent Auto 0.9 0 - 2 % [facility] NRBC Pct Auto 0.0 0.0 - 0.2 /100WBC [facility] Neutrophils Absolute Auto 5.8 2.0 - 8.3 x10*3/uL [facility] Imm Gran Abs Auto 0.08(H) 0.00 - 0.03 X10*3/uL [facility] Lymphocytes Absolute Auto 4.4 1.2 - 4.9 X10*3/uL [facility] Monocytes Absolute Auto 1.0 0.1 - 1.2 X10*3/uL [facility] Eosinophils Absolute Auto 0.4 0.0 - 0.4 X10*3/uL [facility] Basophils Absolute Auto 0.1 0.0 - 0.2 X10*3/uL [facility] NRBC Abs Auto 0.000 0.0 - 0.012 X10*3/uL [facility] Blood Venous blood specimen / Unknown 01/20/2025 3:18 PM EDT 01/20/2025 3:18 PM EDT Ace Whittaker MD LAB BLOOD ORDERABLES Final Result [facility] [address] [place] [address] [phone] documented in this encounter Visit Diagnoses Diagnosis Chest congestion- Primary Other symptoms involving respiratory system and chest documented in this encounter Additional Health Concerns Assessment Noted Time PHQ-9 Depression Total Score: 0 10/26/19 23 11:02 AM EST documented as of this encounter Care Teams Business Development Sales Executive Relationship Specialty Start Date End Date Maya Tamayo MD [address] [place] [phone] PCP - General Family Medicine 03/11/20 documented as of this encounter
--- OUTSIDE RECORDS SUMMARY | 2025-01-20 16:58 | XMS_ITS | Encounter Summary ---
Author Organization [employer] Address [address] [place] [address] 7 [place] [address] Care Team Providers Care Lay Out Machine Operator Name Role Phone Maya Tamayo MD Primary Care Provider [phone] Reason for Visit * Reason Onset Date Comments Results 10/18/2023 Encounter Details Date Type Department Care Team ([facility] Contact Info) Description 10/18/2023 Telephone [facility] CHC MED & PEDS [address] [place] [address] Maya Tamayo MD [address] [place] [address] Results Social History Tobacco Use Types Packs/Day Years [...] Telephone Encounter - Britni Livingston RN - 10/18/2023 2:06 PM EST Pt needs to f/u with ordering provider at [facility] * Telephone Encounter - Duran Gan - 10/18/2023 12:58 PM EST Tc from pt requesting a call from a nurse in regards to her blood work results done [place] [facility] [place] . Please contact pt @ [phone] documented in this encounter Plan of Treatment Not on file documented as of this encounter Visit Diagnoses Not on filedocumented in this encounter Additional Health Concerns Assessment Noted Time PHQ-9 Depression Total Score: 0 10/26/19 23 11:02 AM EST documented as of this encounter Care Teams Lay Out Machine Operator Relationship Specialty Start Date End Date Maya Tamayo MD [address] [place] [address] PCP - General Family Medicine 03/11/20 documented as of this encounter
--- OUTSIDE RECORDS SUMMARY | 2025-01-20 16:58 | XMS_ITS | Encounter Summary ---
Author Organization [employer] Address 75 [facility] 7t [place] [address] Care Team Providers Care Travel Attendants Name Role Phone Maya Tamayo MD Primary Care Provider [phone] Reason for Visit * Reason Onset Date Comments Med Refill 07/26/2024 Encounter Details Date Type Department Care Team ([facility] Contact Info) Description 07/26/2024 Telephone [facility] MEDICINE [address] [place] [address] Maya Tamayo MD [address] [place] [address] Med Refill Social History Tobacco Use Types Packs/Day Years [...] encounter Miscellaneous Notes * Telephone Encounter - Maya Tamayo MD - 07/26/2024 2:25 PM EDT Pt supposed to be on 1000 BID * Telephone Encounter - Beronica Murphy LPN - 07/26/2024 11:05 AM EDT Medication not pende unclear if patient is both on 500 mg and a 1000 mg.Please review * Telephone Encounter - Freedom Quezada - 07/26/2024 10:58 AM EDT TC from pt requesting medication refill. Medications needing refill: metFORMIN (Glucophage) 500 MG tablet To be sent to: [id number] - EMILY LOPEZ - [address] [facility] [address] [facility] documented in this encounter Plan of Treatment Not on file documented as of this encounter Visit Diagnoses Not on filedocumented in this encounter Additional Health Concerns Assessment Noted Time PHQ-9 Depression Total Score: 0 10/26/19 23 11:02 AM EST documented as of this encounter Care Teams Travel Attendants Relationship Specialty Start Date End Date Maya Tamayo MD [address] [place] [phone] PCP - General Family Medicine 03/11/20 documented as of this encounter
--- OUTSIDE RECORDS SUMMARY | 2025-01-20 16:58 | XMS_ITS | Encounter Summary ---
Author Organization [employer] Address [address] [facility] [address] 7[address] [place] [address] Care Team Providers Care Research Librarian Name Role Phone Maya Tamayo MD Primary Care Provider [phone] Encounter Details Date Type Department Care Team ([facility] st Contact Info) Description 08/30/2023 Telephone [facility] MEDICINE [address] [place] [address] Maya Tamayo MD [address] [place] [address] Social History Tobacco Use Types Packs/Day Years [...] documented as of this encounter Care Teams Research Librarian Relationship Specialty Start Date End Date Maya Tamayo MD [address] [place] [phone] PCP - General Family Medicine 03/11/20 documented as of this encounter
--- OUTSIDE RECORDS SUMMARY | 2025-01-20 16:58 | XMS_ITS | Encounter Summary ---
Author Organization [employer] Address [address] [facility] [address] 7t [place] [address] Care Team Providers Care Manager Ccu Name Role Phone Maya Tamayo MD Primary Care Provider [phone] Encounter Details Date Type Department Care Team ([facility] st Contact Info) Description 08/22/2024 Telephone [facility] MEDICINE [address] [place] [address] Maya Tamayo MD [address] [place] [address] Social History Tobacco Use Types Packs/Day Years [...] documented as of this encounter Care Teams Manager Ccu Relationship Specialty Start Date End Date Maya Tamayo MD [address] [place] [phone] PCP - General Family Medicine 03/11/20 documented as of this encounter
--- OUTSIDE RECORDS SUMMARY | 2025-01-20 16:58 | XMS_ITS | Encounter Summary ---
Author Organization [employer] Address [address] [place] [address] 7 [place] [address] Care Team Providers Care Cash Management Associate Name Role Phone Maya Tamayo MD Primary Care Provider [phone] Reason for Visit * Reason Onset Date Comments triage 03/27/2023 Encounter Details Date Type Department Care Team ([facility] Contact Info) Description 03/27/2023 Telephone [facility] CHC MED & PEDS [address] [place], [place] [phone] Maya Tamayo MD [address] [place] [address] triage Social History Tobacco Use Types Packs/Day Years [...] encounter Miscellaneous Notes * Telephone Encounter - Ailyn Clarke RN - 04/03/2023 2:37 PM EDT Please see below. Pt requesting status of referrals placed to Ortho and PT. Please f/u with pt. Thank you. * Telephone Encounter - Anastacia Clarke - 03/31/2023 11:34 AM EDT Tc from pt calling in regards to message above Please contact pt at [phone] * Telephone Encounter - Hever Read - 03/30/2023 10:13 AM EDT Tc from pt requesting a call back from a nurse, pt is inquiring on referral for orthopedic & physical therapy. Please see notes. Please contact at [phone] * Telephone Encounter - Manda Osborn RN - 03/28/2023 12:56 PM EDT TC placed to pt in regards to below message: Called pt. She states that PCP was supposed to send a referral at Physical Therapy in [place]. The place is [facility] on [address] for left knee. Pt. Also wants to know if a referral was sent to a Redrawer for her Arthritis in her knee. Pt. Also requesting Triamcinolone cream 1% to apply to her skin folds under breasts as they are itchy and raw again. Triamcinolone found in [employer]. Also see old order for [facility] PT but that was from 08/2022. Please have team nurse call pt. Back with updates. Spoke with pt and she is requesting a P.T. referral (says cancelled in our system), a Rheum referral, and Triamcinolone cream for her rash under her breasts. Informed pt RN would fwd to PCP in inquire. Pt agrees with plan and will f/u PRN. * Telephone Encounter - Sherry Agarwal - 03/28/2023 11:24 AM EDT Tc from pt returning call regarding last message . * Telephone Encounter - Toma Seals RN - 03/27/2023 2:32 PM EDT Called pt. She states that PCP was supposed to send a referral at Physical Therapy in [place]. Theplace is [facility] on [address] for left knee. Pt. Also wants to know if a referral was sent to a Redrawer for her Arthritis in her knee. Pt. Also requesting Triamcinolone cream 1% to apply to her skin folds under breasts as they are itchy and raw again. Triamcinolone found in [employer]. Also seeold order for [facility] PT but that was from 08/2022. Please have team nurse call pt. Back with updates. * Telephone Encounter - Sherry Agarwal - 03/27/2023 2:19 PM EDT Symptom: Rash or Redness - Widespread Outcome: Schedule a same-day appointment or talk to a nurse or provider today Reason: Caller denied all higher acuity questions The caller accepted this outcome Pt states underneath breast area and stomach . documented in this encounter Plan of Treatment Not on file documented as of this encounter Visit Diagnoses Not on filedocumented in this encounter Additional Health Concerns Assessment Noted Time PHQ-9 Depression Total Score: 0 10/26/19 23 11:02 AM EST documented as of this encounter Care Teams Cash Management Associate Relationship Specialty Start Date End Date Maya Tamayo MD [address] [place] [address] PCP - General Family Medicine 03/11/20 documented as of this encounter
--- OUTSIDE RECORDS SUMMARY | 2025-01-20 16:58 | XMS_ITS | Encounter Summary ---
Author Organization [employer] Address [address] [facility] 7t [place] [address] Care Team Providers Care Public Health Technologist Name Role Phone Maya Tamayo MD Primary Care Provider [phone] Reason for Visit * Reason Comments Med Refill Encounter Details Date Type Department Care Team ([facility] Contact Info) Description 08/07/2024 Refill [facility] MEDICINE [address] [place] [address] Jude Perea MD [address] [place] [address] Social History Tobacco Use Types Packs/Day Years [...] documented as of this encounter Care Teams Public Health Technologist Relationship Specialty Start Date End Date Maya Tamayo MD [address] [place] [phone] PCP - General Family Medicine 03/11/20 documented as of this encounter
--- OUTSIDE RECORDS SUMMARY | 2025-01-20 16:58 | XMS_ITS | Encounter Summary ---
Author Organization [employer] Address [address] [place] [address] 7 [place] [address] Care Team Providers Care Contract Forester Name Role Phone Maya Tamayo MD Primary Care Provider [phone] Reason for Visit * Reason Onset Date Comments Medication 07/19/2023 metFORMIN (Gluco phage) 500 MG tablet Encounter Details Date Type Department Care Team ([facility] Contact Info) Description 07/19/2023 Telephone [facility] CHC MED & PEDS [address] [place] [address] Maya Tamayo MD [address] [place] [address] Medication (metFORMIN (Glucophage) 500 MG tablet) Social History Tobacco Use Types Packs/Day Years [...] encounter Miscellaneous Notes * Telephone Encounter - Rin Ware - 07/19/2023 2:22 PM EDT Tc from patient calling in regards to medication metFORMIN (Glucophage) 500 MG tablet. States she needs a 90 day supply in order for insurance to cover it. documented in this encounter Plan of Treatment Not on file documented as of this encounter Visit Diagnoses Not on filedocumented in this encounter Additional Health Concerns Assessment Noted Time PHQ-9 Depression Total Score: 0 10/26/19 23 11:02 AM EST documented as of this encounter Care Teams Contract Forester Relationship Specialty Start Date End Date Maya Tamayo MD [address] [place] [address] PCP - General Family Medicine 03/11/20 documented as of this encounter
--- OUTSIDE RECORDS SUMMARY | 2025-01-20 16:58 | XMS_ITS | Clinical Summary ---
Author Organization [employer] Address [address] [facility] 7[address] [place] [address] Care Team Providers Care Board Machine Set Up Operator Name Role Phone Maya Tamayo MD Primary Care Provider [phone] Allergies Active Allergy Reactions Criticality Noted Date Comments Codeine Hives 01/06/2012 Medications glucose blood (FREESTYLE LITE) test strip every 6 (six) hours. 03/10/20 22 Active lidocaine (Lidoderm) 5 % patch APPLY 1 NEW PATCH EACH DAY 90 patch 3 09/06/20 23 Active lidocaine (Lidoderm) 5 % patch Apply 1 patch topically in the morning. Remove & discard patch within 12 hours or as directed by MD. 30 patch 3 09/26/20 23 Active celecoxib (CeleBREX) 50 MG capsule TAKE 1 CAPSULE(50 MG) BY MOUTH TWICE DAILY 60 capsule 11/07/19 24 Active Diclofenac Sodium 1 % gel APPLY 1 GRAM TOPICALLY TO THE AFFECTED AREA THREE TIMES DAILY 100 g 01/08/20 24 Active azelastine (Astelin) 0.1 % nasal spray Administer 1 spray into each nostril 2 times daily. Use in each nostril as directed 30 mL 12 01/11/20 24 Active cetirizine (ZyrTEC) 10 MG tablet Take 1 tablet (10 mg) by mouth in the morning. 30 tablet 11 01/11/20 24 Active empagliflozin (Jardiance) 10 MG Take 1 tablet (10 mg) by mouth Once per day. 30 tablet 11 03/12/20 24 2024 Active Multiple Vitamin (Multivitamin) tablet TAKE 1 TABLET BY MOUTH EVERY MORNING 90 tablet 1 04/20/20 24 Active FreeStyle lancets USE DIRECTED THREE TIMES DAILY 100 each 04/20/20 24 Active amLODIPine (Norvasc) 10 MG tabletIndications :Essential hypertension TAKE 1 TABLET BY MOUTH DAILY 30 tablet 11 05/15/20 Active aspirin (Aspirin Low Dose) 81 MG EC tablet Take 1 tablet (81 mg) by mouth Once per day. 90 tablet 1 05/15/20 24 Active FREESTYLE LITE test strip USE DIRECTED FOUR TIMES DAILY 100 strip 05/17/20 24 Active metFORMIN (Glucophage) 1000 MG tablet TAKE 1 TABLET(1000 MG) BY MOUTH EVERY 12 HOURS 90 tablet 3 07/26/20 24 Active predniSONE (Deltasone) 2.5 MG tablet Take 5 mg by mouth if needed each day. 07/24/20 24 Active leflunomide (Arava) 20 MG tablet Take 20 mg by mouth Once per day. 06/07/20 Active losartan (Cozaar) 100 MG tablet TAKE 1 TABLET(100 MG) BY MOUTH IN THE MORNING 90 tablet 3 08/21/20 24 Active metFORMIN (Glucophage) 500 MG tabletIndications :Type 2 diabetes mellitus without complication, without long-term current use of insulin ([facility]) Take 2 tablets (1,000 mg) by mouth with breakfast and with evening meal. 360 tablet 3 08/28/20 24 2024 Active ascorbic acid (Vitamin C) 500 MG tablet TAKE 1 TABLET BY MOUTH TWICE DAILY 180 tablet 09/30/20 Active cholecalciferol (Vitamin D-3) 125 MCG (5000 UT) capsule TAKE ONE CAPSULE BY MOUTH EVERY DAY 90 capsule 09/30/20 Active hydroCHLOROthiazi de (HYDRODiuril) 25 MG tablet TAKE 1 TABLET(25 MG) BY MOUTH IN THE MORNING 30 tablet 11 10/07/20 24 2024 Active Alcohol Swabs (B-D SINGLE USE SWABS REGULAR) pads USE DIRECTED FOUR TIMES DAILY AND PRN 200 each 11/05/19 Active ibuprofen 800 MG tablet Take 1 tablet (800 mg) by mouth 3 times daily. 90 tablet 11 11/05/19 25 Active Acetaminophen Extra Strength 500 MG tablet TAKE 1 TO 2 TABLETS BY MOUTH EVERY 6 TO 8 HOURS NEEDED FOR PAIN 60 tablet 3 11/05/19 25 Active Ventolin HFA 108 (90 Base) MCG/ACT inhalerIndication s:Mild intermittent asthma without complication INHALE 2 PUFFS INTO THE LUNGS FOUR TIMES DAILY NEEDED FOR WHEEZING OR SHORTNESS OF BREATH 18 g 3 11/05/19 25 Active Ketotifen Fumarate 0.035 % solution Administer 1 vial into both eyes 2 times daily. 5 mL 3 11/05/19 25 Active triamcinolone (Kenalog) 0.1 % cream Apply topically 2 times daily. APPLY TOPICALLY TO THE AFFECTED AREA IN THE MORNING AND AT BEDTIME NEEDED FOR PAIN OR SWELLING 30 g 2 11/05/19 25 Active glucose blood (FREESTYLE LITE) test stripIndications: Type 2 diabetes mellitus without complication, without long-term current use of insulin ([facility]) CHECK BLOOD SUGAR TWICE DAILY 100 strip 3 11/06/19 25 Active atorvastatin (Lipitor) 10 MG tabletIndications :Hyperlipidemia, unspecified hyperlipidemia type TAKE 1 TABLET(10 MG) BY MOUTH EVERY MORNING 90 tablet 1 01/10/20 25 Active atorvastatin (Lipitor) 10 MG tabletIndications :Hyperlipidemia, unspecified hyperlipidemia type TAKE 1 TABLET(10 MG) BY MOUTH EVERY MORNING 90 tablet 1 10/10/20 24 2024 Discontinued Active Problems Problem Noted Date Diagnosed Date Hospital discharge follow-up 07/19/2023 Assessment & Plan (07/19/2023 10:05 AM EDT): Seen at er 3 days ago, was prescribed steroid which she has not started due to fear of hyperglycemia, oriented of posible side effects, she will start medication (dexamethasone) Dysuria 11/14/2022 Assessment & Plan (11/14/2022 3:44 PM EST): + symptoms and LE, will rx amox given was sent to treat rhinosinutis Rhinosinusitis 11/14/2022 Assessment & Plan (11/14/2022 3:45 PM EST): > 10 days of symptoms, will send amox, f.u with PCP if symptoms persist Mild intermittent asthma without complication Hypertension 08/01/2018 Assessment & Plan (07/19/2023 10:03 AM EDT): Patient on amlodipine 10mg and hydrochlorothiazide 25mg, and lisinopril 40mg, she was seen at er with puffy lips, and was told to stop lisinopril due to posible allergy, she has been off medication since discharge. BP has been >130/80 will add spironolactone and will refer to supervisor film processing to check if she is allergic to angella/arb Assessment & Plan (11/14/2022 3:46 PM EST): Uncontrolled, will add diuretic to regimen, she is on max of ANGELLA-I and CCB. Target BP < 130/80 mmHg given DM. - If SBP < 130/DBP <80 mmHg in more than 75% of home self-monitoring, continue current medication regimen and make f/u with PCP in 3 month - If SBP >130-165/DBP >80-115 mmHg , increase hydrochlorothiazide to 25 mg and f/u with PCP in 1 month - If SBP > 165/ DBP> 115 mmHg, consult with covering provider - If SBP <90/DBP <50 mmHg, consult with covering provider. Type 2 diabetes mellitus without complication Vitamin D insufficiency 08/01/2018 Gastroesophageal reflux disease without esophagi tis 08/01/2018 Seropositive rheumatoid arthritis 08/01/2018 Encounters Date Type Department Care Team Description 01/20/2025 Orders Only GENERIC EXTERNAL DATA DEPARTMENT Provider, Generic External Data 01/07/2025 Refill [facility] [address] [place] [address] Maya Tamayo MD Hyperlipidemia, unspecified hyperlipidemia type 01/03/2025 Population Health Risk Score [facility] (C[facility]) Department [address] [id number] Provider, Population Health Generic 11/04/2024 11:15 AM EST Telemedicine [facility] [address] [place] [address] Maya Tamayo MD Type 2 diabetes mellitus without complication, without long-term current use of insulin ([facility]/HCC) (Primary Dx); Screening for colon cancer; Primary hypertension; Encounter for screening mammogram for breast cancer; Seropositive rheumatoid arthritis (CMS/HCC) 11/04/2024 Refill [facility] [address] [place] [address] Maya Tamayo MD Type 2 diabetes mellitus without complication, without long-term current use of insulin ([facility]) 11/04/2024 Refill [facility] [address] [place] [address] Maya Tamayo MD 11/04/2024 Refill [facility] [address] [place] [address] Maya Tamayo MD 11/04/2024 Refill [facility] [address] [place] [address] Maya Tamayo MD Mild intermittent asthma without complication 11/04/2024 Refill [facility] [address] [place] [address] Maya Tamayo MD 11/04/2024 Refill [facility] [address] [place] [address] Maya Tamayo MD 11/04/2024 Refill [facility] [address] [place] [address] Maya Tamayo MD 11/04/2024 Travel from Last 3 Months Immunizations Name Administration Dates Next Due Hep B, adult 07/15/2019,08/07/2018,08/24/2007 Influenza injectable quadriv alent IIV4 with preservative 12/07/2017 Influenza injectable quadriv alent preservative free 06/24/2022,06/09/2020,06/21/2018,10/13 Influenza, IIV3, injectable 07/21/2021, 9 MMR 08/07/2018,01/16/2001 Moderna Covid-19 Vaccine 12+ 03/01/2022, 09/24/2021,01/13/2021,12/16 Pneumococcal Polysaccharide PPSV23 07/29/2010 TD (adult), 2 Lf tetanus tox oid, preservative free, adsorbed 01/16/2001 Tdap 10/30/2019,09/09/2009 Family History Medical History Relation Name Comments Alzheimer's disease Other Coronary artery disease Other Diabetes Other Relation Name Status Comments Other Social History Tobacco Use Types Packs/Day Years Used Date Smoking Tobacco: Never Passive Smoke Exposure: Never Smokeless Tobacco: Never Tobacco Cessation:Counseling Given: Not Answered Alcohol Use Standard Drinks/Week Comments Never 0 [...] Orientation Straight 08/22/2022 10 :16 AM EDT Last Filed Vital Signs Vital Sign Reading Time Taken Comments Blood Pressure 175/86 08/06/2024 10:35 AM EDT Pulse 125 08/06/2024 10:35 AM EDT Temperature 36.6 ??C (97.8 ??F) 08/06/2024 10:35 AM E DT Respiratory Rate 20 08/06/2024 10:35 AM EDT Oxygen Saturation 96% 08/06/2024 10:35 AM EDT Inhaled Oxygen Concentration - - Weight 80.7 kg (178 lb) 03/12/2024 10:04 AM EDT Height 157.5 cm (5' 2 ) 03/12/2024 10:04 AM EDT Body Mass Index 32.56 03/12/2024 10:04 AM EDT Plan of Treatment Health Maintenance Due Date Last Done Comments CT Colonography 1964 Colonoscopy 1964 Colorectal Cancer Screening 1964 FIT DNA/Cologuard 1964 FIT 1964 FOBT 1964 Sigmoidoscopy 1964 Alcohol/Substance Use Screening 1976 Pap Smear 1985 Cervical Cancer Screening 1994 HPV/Cotest 1994 Mammogram 2004 Pneumococcal Vaccine: 50+ Years (2 of 2 - PCV) 07/29/2011 07/29/2010 Zoster Vaccines (1 of 2) 2014 Diabetes: Urine Protein Screening 12/29/2020 12/30/2019 Lipid Panel 01/10/2023 01/10/2022, 11/11/2020 Depression Screening 10/26/2023 10/26/2022, 10/26/19 23 RSV Patients and Patients Aged 60 years or older (1 - Risk 60-74 years 1-dose series) 2024 Diabetes: Hemoglobin A1C 06/12/2024 024, 07/24/2023, 01/10/2022, Additional history exists Diabetes: Foot Exam 07/24/2024 07/24/2023, 07/24/2023, 07/24/2023, Additional history exists SDOH Screening 03/05/2025 03/05/2024 Tobacco Screening 08/12/2025 08/12/2024 Eye Exam 07/29/2026 07/29/2024, 04/2024, 07/29/2024, Additional history exists DTaP/Tdap/Td Vaccines (3 - Td or Tdap) 10/30/2029 10/30/2019, 09/09/2009, 01/16/2001 Hepatitis B Vaccines Completed 07/15/2019, 08/07/2018, 08/24/2007 HIV Screening Completed 12/30/2019 Hepatitis C Screening Completed 10/13/2023, 020 Influenza Vaccine Completed 07/02/2024, , 06/24/2022, Additional history exists COVID-19 Vaccine Completed 07/08/2024, 07/2022, 03/01/2022, Additional history exists HIB Vaccines Aged Out No longer eligi [...] patient's age to complete this topic Meningococcal Vaccine Aged Out No yudith katie eligible based on patient's age to complete this topic RSV under 20 months Aged Out No longe r eligible based on patient's age to complete this topic Rotavirus Vaccines Aged Out No longer eligible based on patient's age to complete this topic Procedures Procedure Name Priority Date/Time Associated Diagnosis Comments SED RATE BY MODIFIED WESTERGREN Routine 01/20/2025 3:18 PM EDT CBC WITH AUTO DIFFERENTIAL Routine 01/20/2025 3:18 PM EDT Chest congestion POCT GLYCATED HEMOGLOBIN, TOTAL Routine 03/12/2024 10:08 AM EDT Type 2 diabetes mellitus without complication, without long-term current use of insulin ([facility]) HEPATITIS PANEL, GENERAL Routine 10/13/2023 11:57 AM EST LIPID PANEL, STANDARD Routine 01/10/2022 8:37 AM EDT ZZZ HISTORICAL HIV AB/AG Routine 12/30/2019 8:59 AM EDT ZZZ HISTORICAL MICROALBUMIN, RANDOM Routine 12/30/2019 8:52 AM EDT from Last 3 Months or Most Recently Relevant to Health Maintenance Results * (ABNORMAL) CBC auto differential (01/20/2025 3:18 PM EDT) White Blood Count 11.7(H) 4.8 - 10.8 X10*3/uL [facility] Red Blood Count 4.66 4.20 - 5.50 X10*6/uL [facility] Hemoglobin 12.3 12.0 - 16.0 g/dl [facility] Hematocrit 40.0 37.0 - 47.0 % [facility] Mean Corpuscular Volume 85.8 80.0 - 98.0 fL [facility] Mean Corpuscular Hemoglobin 26.4(L) 27.0 - 33.0 pg [facility] Mean Corpuscular HGB Conc 30.8(L) 31.0 - 35.0 g/dl [facility] Red Cell Distribution Width 14.6 11.0 - 16.0 % [facility] Platelet Count 408(H) 160 - 400 X10*3/uL [facility] Mean Platelet Volume 10.1 9.4 - 12.3 fL [facility] Neutrophils Percent Auto 49.3 45 - 73 % [facility] Imm Gran Pct Auto 0.7(H) 0.0 - 0.4 % [facility] Lymphocytes Percent Auto 37.8 20 - 40 % [facility] Monocytes Percent Auto 8.3 2 - 11 % [facility] Eosinophils Percent Auto 3.0 0 - 4 % [facility] Basophils Percent Auto 0.9 0 - 2 % [facility] NRBC Pct Auto 0.0 0.0 - 0.2 /100WBC [facility] Neutrophils Absolute Auto 5.8 2.0 - 8.3 x10*3/uL [facility] Imm Gran Abs Auto 0.08(H) 0.00 - 0.03 X10*3/uL [facility] Lymphocytes Absolute Auto 4.4 1.2 - 4.9 X10*3/uL [facility] Monocytes Absolute Auto 1.0 0.1 - 1.2 X10*3/uL [facility] Eosinophils Absolute Auto 0.4 0.0 - 0.4 X10*3/uL [facility] Basophils Absolute Auto 0.1 0.0 - 0.2 X10*3/uL [facility] NRBC Abs Auto 0.000 0.0 - 0.012 X10*3/uL [facility] Blood Venous blood specimen / Unknown 01/20/2025 3:18 PM EDT 01/20/2025 3:18 PM EDT us Ace Whittaker MD LAB BLOOD ORDERABLES Final Result Performing Organization Address [facility] Co de Phone Number [facility] [address] [place] [phone] * (ABNORMAL) Sed Rate by Modified Westergren (01/20/2025 3:18 PM EDT) Pathologist [facility] Erythrocyte Sedimentation Rate 54(H) 0 - 20 MM/HR [facility] Comment:Patients with polycy themia and many hemoglobin abnormalitiesmay have depressed sed rates whereas patients with anemiamay have elevated sed rates. 01/20/2025 3:18 PM EDT 01/20/2025 3:18 PM EDT us Generic External Data Provider LAB BLOOD ORDERAB LES Final Result Performing Organization Address [facility] Co de Phone Number [facility] [address] [place] [phone] * (ABNORMAL) POCT HGB A1C (03/12/2024 10:08 AM EDT) [facility] Hemoglobin A1C 7.6(A) 4.0 - 6.0 % QC Media Lot # [id number] Lot# Expiration Date [id number] Blood 03/12/2024 10:0 8 AM EDT us Maya Tamayo MD POINT OF CARE TEST ENTER/EDIT OR DERABLES Final Result * Hepatitis Panel, General (10/13/2023 11:57 AM EST) [facility] Hepatitis A IgM Nonreactive Nonreactive [facility] Comment:IgM antibodies to FRANCO V not detected; does not exclude earlyacute or recovered HAV infection. ~Hepatitis B Surface Antibody NONREACTIVE Nonreactive [facility] Comment:Nonreactive: < 8.00 mIU/mL Hepatitis B Core Antibody Nonreactive Nonreactive [facility] Hepatitis C Antibody Nonreactive Nonreactive [facility] Comment:Antibodies to HCV no t detected; does not exclude early acuteHCV infection. Hepatitis B Surface Ag Negative Negative [facility] 10/13/2023 11:5 7 AM EST 10/13/2023 11:57 AM EST us Generic External Data Provider LAB BLOOD ORDERAB LES Final Result Performing Organization Address City/[facility]/ZIP Co de Phone Number [facility] [address] [place] [phone] * (ABNORMAL) LIPID PANEL, STANDARD (01/10/2022 8:37 AM EDT) Chol/HDLC Ratio 3.2 <5.0 (calc) [facility] Cholesterol, Total 126 <200 mg/dL [facility] HDL Cholesterol 40(L) > OR = 50 mg/dL [facility] LDL Cholesterol 68 mg/dL (calc) [facility] Comment: Reference range: <100 ?? Desirable range <100 mg/dL for primary prevention; ?? <70 mg/dL for patients with CHD or diabetic patients ?? with > or = 2 CHD risk factors. ?? LDL-C is now calculated using the Johnny-Gonzales ?? calculation, which is a validated novel method providing ?? better accuracy than the Friedewald equation in the ?? estimation of LDL-C. ?? Johnny ROBERTS et al. ABIGAIL. 2013;310(19): 8000-1051 ?? (http://education.Eventstagr.am/faq/BCL557) Non-HDL Cholesterol 86 <130 mg/dL (calc) [facility] Comment: For patients with diabetes plus 1 major ASCVD risk ?? factor, treating to a non-HDL-C goal of <100 mg/dL ?? (LDL-C of <70 mg/dL) is considered a therapeutic ?? option. Triglycerides 98 <150 mg/dL [facility] 01/10/2022 8:37 AM EDT us Maya Tamayo MD LAB BLOOD ORDERABLES Final Resul t [facility] [address] * HIV AB/AG (12/30/2019 8:59 AM EDT) Pathologist [facility] HIV AG/AB NONREACTIVE [facility] Comment: HIV-1 p24 Ag and/or HIV-1/HIV-2 Ab not detected. ?? A test result that is nonreactive does not exclude the possibility of exposure to or infection with HIV-1 and/or HIV-2. Nonreactive results in this assay for individuals with prior exposure to HIV-1 and/or HIV-2 may be due to antigen and antibody levels that are below the limit of detection of this assay. ?? The [employer] HIV Ag/Ab Combo assay result and supplemental assay results should be interpreted in conjunction with the patient's clinical presentation, history and other laboratory results. ??If the results are inconsistent with clinical evidence, additional testing is suggested to confirm the result. 12/30/2019 8:59 AM EDT Historical Provider HISTORICAL/NON ORDERABLE LABS Final Result Performing Organization Address [facility] Phone Number [facility] [address] * MICROALBUMIN, RANDOM (12/30/2019 8:52 AM EDT) Pathologist [facility] CREATININE, RANDOM URINE 82.43 MG/DL [facility] MICALB/CRE RATIO RANDOM URINE 7.2 ug/mg cr [facility] Comment: ?Albumin/Creatinine Ratio Reference Ranges: ? Normal: < 30 ug/mg creatinine ? Microalbuminuria: ??30 - 300 ug/mg creatinine Clinical Albuminuria: ??> 300 ug/mg creatinine MICROALBUMIN, RANDOM URINE 6.0 MG/L [facility] 12/30/2019 8:52 AM EDT Historical Provider HISTORICAL/NON ORDERABLE LABS Final Result Performing Organization Address [facility] de Phone Number [facility] [address] from Last 3 Months or Most Recently Relevant to Health Maintenance Insurance [facility] [address] [place] [address] Care Teams Board Machine Set Up Operator Relationship Specialty Start Date End Date Maya Tamayo MD [address] [place] [phone] PCP - General Family Medicine 03/11/20
--- OUTSIDE RECORDS SUMMARY | 2025-01-20 16:58 | XMS_ITS | Encounter Summary ---
Author Organization [employer] Address [address] [facility] [address]t [place] [address] Care Team Providers Care Wagon Person Name Role Phone Maya Tamayo MD Primary Care Provider [phone] Encounter Details Date Type Department Care Team ([facility] st Contact Info) Description 01/20/2025 Orders Only GENERIC EXTERNAL DATA DEPARTMENT Provider, Generic External Data Social History Tobacco Use Types Packs/Day Years [...] on file documented as of this encounter Procedures Procedure Name Priority Date/Time Associated Diagnosis Comments SED RATE BY MODIFIED WESTERGREN Routine 01/20/2025 3:18 PM EDT documented in this encounter Results * (ABNORMAL) Sed Rate by Modified Westergren (01/20/2025 3:18 PM EDT) Erythrocyte Sedimentation Rate 54(H) 0 - 20 MM/HR [facility] Comment:Patients with polycy themia and many hemoglobin abnormalitiesmay have depressed sed rates whereas patients with anemiamay have elevated sed rates. 01/20/2025 3:18 PM EDT 01/20/2025 3:18 PM EDT us Generic External Data Provider LAB BLOOD ORDERAB LES Final Result Performing Organization Address City/State/[facility] Co de Phone Number [facility] [address] [place] [phone] documented in this encounter Visit Diagnoses Not on filedocumented in this encounter Additional Health Concerns Assessment Noted Time PHQ-9 Depression Total Score: 0 10/26/19 23 11:02 AM EST documented as of this encounter Care Teams Wagon Person Relationship Specialty Start Date End Date Maya Tamayo MD [address] [place] [address] PCP - General Family Medicine 03/11/20 documented as of this encounter
--- OUTSIDE RECORDS SUMMARY | 2025-01-20 16:58 | XMS_ITS | Encounter Summary ---
Author Organization [email or web address] Address [address] [place] [address] 7 [place] [address] Care Team Providers Care Plastic Shaper Name Role Phone Maya Tamayo MD Primary Care Provider [phone] Reason for Visit * Reason Onset Date Comments Medication Question 07/19/2023 spironolacto ne (Aldactone) 25 MG tablet Encounter Details Date Type Department Care Team ([facility] st Contact Info) Description 07/19/2023 Telephone [facility] [address] [place] [address] Maya Tamayo MD [address] [place] [address] Medication Question (spironolactone (Aldactone) 25 MG tablet) Social History Tobacco Use Types [...] Telephone Encounter - Ailyn Clarke RN - 07/24/2023 11:14 AM EDT Pt in office today 07/24/23 to see PCP/discuss meds. * Telephone Encounter - Maya Tamayo MD - 07/20/2023 12:27 PM EDT Ok to take * Telephone Encounter - Rin Ware - 07/19/2023 2:24 PM EDT Tc from patient requesting a call back, in regards to new medication spironolactone (Aldactone) 25 MG tablet and interactions with others or okay to take with certain medications. documented in this encounter Plan of Treatment Not on file documented as of this encounter Visit Diagnoses Not on filedocumented in this encounter Additional Health Concerns Assessment Noted Time PHQ-9 Depression Total Score: 0 10/26/19 11:02 AM EST documented as of this encounter Care Teams Plastic Shaper Relationship Specialty Start Date End Date Maya Tamayo MD [address] [place] [phone] PCP - General Family Medicine 03/11/20 documented as of this encounter
--- OUTSIDE RECORDS SUMMARY | 2025-01-20 16:58 | XMS_ITS | Encounter Summary ---
Author Organization [employer] Address [address] [facility] [address] 7[address] [place] [address] Care Team Providers Care Ropewalk Rope Maker Name Role Phone Maya Tamayo MD Primary Care Provider Encounter Details Date Type Department Care Team ([facility] Contact Info) Description 08/30/2023 Orders Only [facility] [address] [place], [place] [phone] Maya Tamayo MD [address] [place] [address] Social History Tobacco Use Types Packs/Day Years [...] documented as of this encounter Care Teams Ropewalk Rope Maker Relationship Specialty Start Date End Date Maya Tamayo MD [address] [place] [address] PCP - General Family Medicine 03/11/20 documented as of this encounter
--- OUTSIDE RECORDS SUMMARY | 2025-01-20 16:59 | XMS_ITS | Encounter Summary ---
Author Organization [employer] Address 75 [facility] 7 [place] [address] Care Team Providers Care Safety Physician Name Role Phone Maya Tamayo MD Primary Care Provider [phone] Reason for Visit * Reason Onset Date Comments Nurse Triage 01/16/2024 Encounter Details Date Type Department Care Team ([facility] Contact Info) Description 01/16/2024 Telephone [facility] [address] [place] [address] Maya Tamayo MD [address] [place] [address] Nurse Triage Social History Tobacco Use Types Packs/Day Years [...] Telephone Encounter - Britni Livingston RN - 01/22/2024 4:05 PM EDT Returned call to pt regarding message below. Pt declined an appt as symptoms have improved. Pt advised to return call if symptoms persist or worsen with no relief from meds. Pt agrees with plan. * Telephone Encounter - Maya Tamayo MD - 01/22/2024 10:46 AM EDT Will need to be seen for further care * Telephone Encounter - Emily Garcia RN - 01/16/2024 3:34 PM EDT Triage call Pt had tele visit with Provider 01/11/24 for sinus symptoms. Pt was prescribed azelastine HCL 0.1 % nasal spray, zyrtec 10mg, and ketotifen fumurate 0.025% for eyes. Pt reports is using these medications as prescribed and symptoms continue. Nasal drainage has increased with clear drainage. Pt feels congested with slight cough now and feels that sinus symptoms may have gotten worse. Pt is offered to come to [facility] today but, declines to go out. No apts available in [facility] today or tomorrow. Advised Pt will send to [facility] nursing team to follow up. Pt agrees with plan and disposition. Protocol Used: Nasal Allergies (Hay Fever) (Adult) Protocol-Based Disposition: Home Care Positive Triage Question: * Nasal allergies occur only certain times of year * All higher-acuity triage questions were negative Care Advice Discussed: * Reassurance and Education - Hay Fever * How to Make Saline (Salt Water) Nasal Wash * Nasal Decongestants for a Very Stuffy Nose * For Eye Allergies * Reasons To Call Back - You become worse * Telephone Encounter - Jonatan Garza - 01/16/2024 12:35 PM EDT Symptom: Sinus Symptoms Outcome: Schedule an appointment to be seen within 24 hours Reason: Caller denied all higher acuity questions The caller accepted this outcome documented in this encounter Plan of Treatment Not on file documented as of this encounter Visit Diagnoses Not on filedocumented in this encounter Additional Health Concerns Assessment Noted Time PHQ-9 Depression Total Score: 0 10/26/19 23 11:02 AM EST documented as of this encounter Care Teams Safety Physician Relationship Specialty Start Date End Date Maya Tamayo MD [address] [place] [address] PCP - General Family Medicine 03/11/20 documented as of this encounter
--- OUTSIDE RECORDS SUMMARY | 2025-01-20 16:59 | XMS_ITS | Encounter Summary ---
Author Organization [employer] Address 75 [facility] 7t [place] [address] Care Team Providers Care Waiter Waitress Name Role Phone Maya Tamayo MD Primary Care Provider [phone] Reason for Visit * Reason Comments Med Refill Encounter Details Date Type Department Care Team ([facility] Contact Info) Description 05/14/2024 Refill [facility] & PEDS [address] [place], [place] [phone] Maya Tamayo MD 505 [place] [address] Essential hypertension Social History Tobacco Use Types Packs/Day Years [...] documented as of this encounter Visit Diagnoses Diagnosis Essential hypertension Unspecified essential hypertension documented in this encounter Additional Health Concerns Assessment Noted Time PHQ-9 Depression Total Score: 0 10/26/19 23 11:02 AM EST documented as of this encounter Care Teams Waiter Waitress Relationship Specialty Start Date End Date Maya Tamayo MD [address] [place] [address] PCP - General Family Medicine 03/11/20 documented as of this encounter
--- OUTSIDE RECORDS SUMMARY | 2025-01-20 16:59 | XMS_ITS | Encounter Summary ---
Author Organization [employer] Address 75 [facility] 7t [place] [address] Care Team Providers Care Patient Flow Coordinator Name Role Phone Maya Tamayo MD Primary Care Provider [phone] Encounter Details Date Type Department Care Team ([facility] Contact Info) Description 04/02/2024 Telephone [facility] MED & PEDS [address] [place], [place] [phone] Maya Tamayo MD [address] [place] [address] Social History Tobacco Use Types Packs/Day Years [...] Telephone Encounter - Britni Livingston RN - 04/03/2024 4:08 PM EDT Noted. Thank you. * Telephone Encounter - Sherry Agarwal - 04/02/2024 9:30 AM EDT Tc from pt requesting status on electricity paperwork she dropped off at medical records. States she called medical records, and they informed her paperwork was given to PCP and is waiting on return.The pt informed only has a few more days to return paperwork. Please call pt to clarify. documented in this encounter Plan of Treatment Not on file documented as of this encounter Visit Diagnoses Not on filedocumented in this encounter Additional Health Concerns Assessment Noted Time PHQ-9 Depression Total Score: 0 10/26/19 23 11:02 AM EST documented as of this encounter Care Teams Patient Flow Coordinator Relationship Specialty Start Date End Date Maya Tamayo MD [address] [place] [address] PCP - General Family Medicine 03/11/20 documented as of this encounter
--- OUTSIDE RECORDS SUMMARY | 2025-01-20 16:59 | XMS_ITS | Encounter Summary ---
Author Organization [employer] Address 75 [facility] 7t [place] [address] Care Team Providers Care Truck Chauffeur Name Role Phone Maya Tamayo MD Primary Care Provider [phone] Reason for Visit * Reason Onset Date Comments Med Refill 05/14/2024 Encounter Details Date Type Department Care Team ([facility] Contact Info) Description 05/14/2024 Telephone [facility] [address] [place] [address] Maya Tamayo MD [address] [place] [address] Med Refill Social History Tobacco Use Types [...] encounter Miscellaneous Notes * Telephone Encounter - Viviana Pineda - 05/14/2024 2:38 PM EDT TC from pt requesting medication refill. Medications needing refill : Aspirin Low Dose 81 MG EC tablet amLODIPine (Norvasc) 10 MG tablet To be sent to: [id number] - [place] - [address] [facility] [address] documented in this encounter Plan of Treatment Not on file documented as of this encounter Visit Diagnoses Not on filedocumented in this encounter Additional Health Concerns Assessment Noted Time PHQ-9 Depression Total Score: 0 10/26/19 23 11:02 AM EST documented as of this encounter Care Teams Truck Chauffeur Relationship Specialty Start Date End Date Maya Tamayo MD [address] [place] [address] PCP - General Family Medicine 03/11/20 documented as of this encounter
--- OUTSIDE RECORDS SUMMARY | 2025-01-20 16:59 | XMS_ITS | Encounter Summary ---
Author Organization [employer] Address [address] [place] [address] 7 [place] [address] Care Team Providers Care Child Monitor Name Role Phone Maya Tamayo MD Primary Care Provider [phone] Reason for Visit * Reason Onset Date Comments Referral 11/04/2022 Returning call 11/04/2022 Encounter Details Date Type Department Care Team ([facility] st Contact Info) Description 11/04/2022 Telephone [facility] [address] [place] [address] Maya Tamayo MD [address] [place], [place] [phone] Referral; Returning call Social History Tobacco Use Types Packs/Day Years Used Date Smoking Tobacco: Never Assessed Depression Answer Date Recorded Patient Health Questionnaire-9 [...] Telephone Encounter - Maya Tamayo MD - 11/14/2022 11:00 AM EST Done * Telephone Encounter - Adriana Dueñas RN - 11/10/2022 1:13 PM EST Pt. Was referred to [facility] 10/26/22 for bilateral knee pain, pt. [facility] ([place] [facility] Please place new referral with requested location in the details in order for referral team to process this request, thank you! * Telephone Encounter - Niranjan Cali - 11/09/2022 2:14 PM EST Tc from pt returning nurse call . Please contact pt at [phone] * Telephone Encounter - Jan Sultana - 11/04/2022 11:23 AM EST Tc requesting a new referral to be seeing at [facility] for Physical Therapy, pt did not want to be seen at [facility] Please contact pt at [phone] documented in this encounter Plan of Treatment Not on file documented as of this encounter Visit Diagnoses Not on filedocumented in this encounter Additional Health Concerns Assessment Noted Time PHQ-9 Depression Total Score: 0 10/26/19 23 11:02 AM EST documented as of this encounter Care Teams Child Monitor Relationship Specialty Start Date End Date Maya Tamayo MD [address] [place] [address] PCP - General Family Medicine 03/11/20 documented as of this encounter
--- OUTSIDE RECORDS SUMMARY | 2025-01-20 16:59 | XMS_ITS | Encounter Summary ---
Author Organization [employer] Address [address] [facility] 7t [place] [address] Care Team Providers Care Formulator Compounder Name Role Phone Maya Tamayo MD Primary Care Provider [phone] Reason for Visit * Reason Comments Med Refill Encounter Details Date Type Department Care Team ([facility] Contact Info) Description 05/14/2024 Refill [facility] MED & PEDS [address] [place], [place] [phone] Maya Tamayo MD [address] [place] [address] Essential hypertension Social History Tobacco Use Types [...] documented as of this encounter Care Teams Formulator Compounder Relationship Specialty Start Date End Date Maya Tamayo MD [address] [place] [address] PCP - General Family Medicine 03/11/20 documented as of this encounter
--- OUTSIDE RECORDS SUMMARY | 2025-01-20 16:59 | XMS_ITS | Encounter Summary ---
Author Organization [employer] Address 75 [facility] 7t [place] [address] Care Team Providers Care Document Image Technician Name Role Phone Maya Tamayo MD Primary Care Provider [phone] Reason for Visit * Reason Comments Med Refill Encounter Details Date Type Department Care Team ([facility] Contact Info) Description 02/14/2024 Refill [facility] & PEDS [address] [place], [place] [phone] Maya Tamayo MD [address] [place] [address] Social History Tobacco Use Types Packs/Day Years [...] documented as of this encounter Care Teams Document Image Technician Relationship Specialty Start Date End Date Maya Tamayo MD [address] [place] [address] PCP - General Family Medicine 03/11/20 documented as of this encounter
--- OUTSIDE RECORDS SUMMARY | 2025-01-20 16:59 | XMS_ITS | Encounter Summary ---
Author Organization [employer] Address [address] [place] [address] 7 [place] [address] Care Team Providers Care Kerrick Kleaner Operator Name Role Phone Maya Tamayo MD Primary Care Provider Reason for Visit * Reason Onset Date Comments returning call 11/02/2022 Encounter Details Date Type Department Care Team ([facility] Contact Info) Description 11/02/2022 Telephone [facility] CH[facility] MED & PEDS [address] [place] [address] Maya Tamayo MD [address] [place] [address] returning call Social History Tobacco Use Types Packs/Day [...] * Telephone Encounter - Sherry Agarwal - 11/02/2022 11:18 AM EST Tc from pt returning call . documented in this encounter Plan of Treatment Not on file documented as of this encounter Visit Diagnoses Not on filedocumented in this encounter Additional Health Concerns Assessment Noted Time PHQ-9 Depression Total Score: 0 10/26/19 23 11:02 AM EST documented as of this encounter Care Teams Kerrick Kleaner Operator Relationship Specialty Start Date End Date Maya Tamayo MD [address] [place] [address] PCP - General Family Medicine 03/11/20 documented as of this encounter
--- OUTSIDE RECORDS SUMMARY | 2025-01-20 16:59 | XMS_ITS | Encounter Summary ---
Author Organization [employer] Address [address] [place] [address] 7 [place] [address] Care Team Providers Care Regional Cra Name Role Phone Maya Tamayo MD Primary Care Provider [phone] Reason for Visit * Reason Onset Date Comments Appointment Request 01/11/2023 Encounter Details Date Type Department Care Team ([facility] Contact Info) Description 01/11/2023 Telephone [facility] MED & PEDS [address] [place] [address] Maya Tamayo MD [address] [place] [address] Appointment Request Social History Tobacco Use Types Packs/Day [...] encounter Miscellaneous Notes * Telephone Encounter - Duran Gan - 01/11/2023 9:21 AM EDT Tc from pt requesting a telephone visit with provider in regards of her health diet. Pt would like to discuss the matter before doing. Please contact pt at [phone] documented in this encounter Plan of Treatment Not on file documented as of this encounter Visit Diagnoses Not on filedocumented in this encounter Additional Health Concerns Assessment Noted Time PHQ-9 Depression Total Score: 0 10/26/19 23 11:02 AM EST documented as of this encounter Care Teams Regional Cra Relationship Specialty Start Date End Date Maya Tamayo MD [address] [place] [address] PCP - General Family Medicine 03/11/20 documented as of this encounter
--- OUTSIDE RECORDS SUMMARY | 2025-01-20 16:59 | XMS_ITS | Encounter Summary ---
Author Organization [employer] Address [address] [facility] 7 [place] [address] Care Team Providers Care Grain Inspector Name Role Phone Maya Tamayo MD Primary Care Provider [phone] Reason for Visit * Reason Onset Date Comments Med Refill 06/10/2024 Encounter Details Date Type Department Care Team ([facility] Contact Info) Description 06/10/2024 Refill [facility] [address] [place] [address] Maya Tamayo MD [address] [place], [place] [phone] Social History Tobacco Use Types Packs/Day Years [...] * Telephone Encounter - Duran Gan - 06/11/2024 2:15 PM EDT Tc from pt requesting if eye drops script could be sent [employer] [facility] [place] due toCurrent pharmacy not having a Pharmacist. * Telephone Encounter - Duran Gan - 06/10/2024 9:21 AM EDT TC from pt requesting medication refill. Medications needing refill : ketotifen (Zaditor) 0.025 % ophthalmic solution To be sent to: [id number] - [address] [facility] [address] documented in this encounter Plan of Treatment Not on file documented as of this encounter Visit Diagnoses Not on filedocumented in this encounter Additional Health Concerns Assessment Noted Time PHQ-9 Depression Total Score: 0 10/26/19 23 11:02 AM EST documented as of this encounter Care Teams Grain Inspector Relationship Specialty Start Date End Date Maya Tamayo MD [address] [place] [address] PCP - General Family Medicine 03/11/20 documented as of this encounter
--- OUTSIDE RECORDS SUMMARY | 2025-01-20 16:59 | XMS_ITS | Encounter Summary ---
Author Organization [employer] Address [address] [facility] 7t [place] [address] Care Team Providers Care Eap Counselor Name Role Phone Maya Tamayo MD Primary Care Provider [phone] Reason for Visit * Reason Onset Date Comments Med Refill 02/06/2024 Encounter Details Date Type Department Care Team ([facility] Contact Info) Description 02/06/2024 Telephone [facility] MEDICINE [address] [place] [address] Maya Tamayo MD [address] [place] [address] Med Refill Social History Tobacco Use Types [...] encounter Miscellaneous Notes * Telephone Encounter - Jonatan Garza - 02/08/2024 12:33 PM EDT Tc from patient calling to request status of the medication below * Telephone Encounter - Viviana Pineda - 02/06/2024 11:43 AM EDT TC from pt requesting medication refill. Medications needing refill : triamcinolone (Kenalog) 0.1 % cream To be sent to: [id number] - [place] - [address] [facility] [address] documented in this encounter Plan of Treatment Not on file documented as of this encounter Visit Diagnoses Not on filedocumented in this encounter Additional Health Concerns Assessment Noted Time PHQ-9 Depression Total Score: 0 10/26/19 23 11:02 AM EST documented as of this encounter Care Teams Eap Counselor Relationship Specialty Start Date End Date Maya Tamayo MD [address] [place] [address] PCP - General Family Medicine 03/11/20 documented as of this encounter
[2025-01-20 17:30] LABS: Alanine Aminotransferase 18 U/L (0-31); Alkaline Phosphatase 48 U/L (39-117); Anion Gap 15 (12-20); Aspartate Amino Transferase 15 U/L (5-31); Bilirubin Total 0.3 mg/dL (0.0-1.0); Blood Urea Nitrogen 12 mg/dL (9-16); C Reactive Protein 4.26 mg/dL (< or = 0.50); Calcium 9.9 mg/dL (8.4-10.2); Carbon Dioxide 28 mmol/L (22-29); Chloride 100 mmol/L (96-108); Estimated Glomerular Filt Rate > 60; Glucose Random 155 mg/dL (60-115); Potassium 3.9 mmol/L (3.3-5.1); Sodium 139 mmol/L (135-145); Total Protein 7.7 g/dL (6.5-8.0)
== END 2025-01-20 15:03 | disposition home or self-care (01) ==
LOC: HO.LAB 15:02
PROVIDERS: Internal Medicine; PCP Student in an Organized Health Care Education/Training Program; Visit Provider Student in an Organized Health Care Education/Training Program
DX: M06.9 Rheumatoid arthritis, unspecified (principal); R09.89 Other specified symptoms and signs involving the circulatory and respiratory systems; Z51.81 Encounter for therapeutic drug level monitoring; Z79.899 Other long term (current) drug therapy
CPT/HCPCS: 36415; 80053; 85025; 85652; 86140